=== PATIENT | female | born 1990 | race Caucasian/White ===

== ENCOUNTER → 2023-10-22 06:40 | Outpatient (REF) | payer OTHER, SELFPAY | LOC: RAD 06:40 | PROVIDERS: ATTENDING PHYSICIAN Nurse Practitioner; FAMILY PHYSICIAN Family Medicine | DX: I70.0 Atherosclerosis of aorta (principal) | CPT/HCPCS: 76770 ==

== ENCOUNTER 2023-12-01 10:48 | Emergency (ER) | payer OTHER, SELFPAY ==
[2023-12-01 10:55] VITALS: BP 121/84
[2023-12-01 11:23] LABS: Urine Albumin Negative (Neg - Trace); Urine Bilirubin 1+ (Negative); Urine Character Clear (Clear); Urine Color Yellow; Urine Glucose Negative (Negative); Urine Ketone Trace (Negative); Urine Leukocyte 1+ (Negative); Urine Nitrite Negative (Negative); Urine Occult Blood Negative (Negative); Urine Specific Gravity 1.015 (<1.030); Urine Urobilinogen Negative (Neg - 1+)
[2023-12-01 11:30] LABS: % Basophils 0.4 % (0-2); % Eosinophils 0.6 % (0-6); % Immature Granulocytes 0.3 % (0-0.5); % Lymphocytes 29.2 % (20.5-51.1); % Monocytes 4.6 % (1.7-9.3); % Neutrophils 64.9 % (42.2-75.2); Absolute Basophils 0.1 10^3/uL (0-0.2); Absolute Eosinophils 0.1 10^3/uL (0-0.7); Absolute Lymphocytes 3.6 10^3/uL (1.2-3.4); Absolute Monocytes 0.6 10^3/uL (0.1-0.6); Absolute Neutrophils 8.1 10^3/uL (1.4-6.5); Hematocrit 37.3 % (37.0-47.0); Hemoglobin 12.4 g/dL (12.0-16.0); Mean Corp Hgb Conc. 33.2 g/dL (33.0-37.0); Mean Corpuscular Hgb 27.7 pg (27.0-31.0); Mean Corpuscular Volume 83.3 fL (81.0-99.0); Mean Platelet Volume 10.3 fL (7.4-10.4); Nucleated Red Blood Cells % 0 %; Platelet Count 323 10^3/uL (130-400); Red Blood Cell Count 4.48 10^6/uL (4.20-5.40); Red Cell Dist. Width 13.6 % (11.5-14.5); Urine Red Blood Cell 0-2 /HPF (0-2); Urine Squamous Cell >30 /LPF (Few); White Blood Cell Count 12.5 10^3/uL (4.8-10.8)
[2023-12-01 11:31] LABS: Urine Bacteria Moderate (Negative)
[2023-12-01 11:51] LABS: ALT (SGPT) 18 U/L (0-35); AST (SGOT) 20 U/L (14-36); Albumin 4.4 g/dl (3.5-5.0); Alkaline Phosphatase 81 U/L (38-126); Blood Urea Nitrogen 15 mg/dl (7-17); Carbon Dioxide 21 mmol/L (22-30); Chloride 100 mmol/L (98-107); Glucose 100 mg/dl (70-99); Potassium 4.7 mmol/L (3.5-5.1); Sodium 136 mmol/L (135-145); Total Bilirubin 0.4 mg/dl (0.2-1.3); Total Protein 7.4 g/dl (6.3-8.2); eGFR > 60.00
[2023-12-01 12:00] LABS: Lipase 90 U/L (23-300)
--- NOTE | 2023-12-01 12:33 | ED.GENMED ---
History of Present Illness
<Celeste Banks PA-C - Last Filed: 12/01/23 19:18>
General
Chief Complaint: Abdominal Pain
Source: patient
Exam Limitations: none
Time Seen by Provider: 12/01/23 11:57
Nursing documentation reviewed up to this point in time: agreed with
Travel History
Have you had any contact with someone who has COVID-19?: No
Do you have any symptoms of coronavirus? Fever > 100 degrees, chills, cough, shortness of breath, sore throat, loss of taste or smell, muscle aches, or headache?: No
History of Present Illness
History of Present Illness:
Patient is a 32-year-old female with history of hypertension, hyperlipidemia, GERD, endometriosis presenting to the emergency department for evaluation of lower abdominal pain with associated nausea and vomiting. Patient states symptoms initially
started this past Thursday. Patient's describes abdominal pain as a constant pain in her lower abdomen, slightly worse in the right lower quadrant. Intensity does wax and wane and feels like a cramping sensation. Pain is made worse with movement
and walking. Patient reports intermittent nausea and vomiting and associated anorexia. Possible subjective fever yesterday. Patient denies any chest pain, shortness of breath, constipation, or urinary symptoms.
Of note�patient was treated with Augmentin for his presumed bronchitis. She started antibiotic on Thursday and stopped antibiotic yesterday due to these GI symptoms that she is unsure if they are related to antibiotic.
Patient has a history of cholecystectomy and endometriosis surgery many years ago.
Patient states this pain feels very different than prior ovarian cyst and kidney stones.
Past History
<Celeste Banks PA-C - Last Filed: 12/01/23 19:18>
Past History
ED Past Medical History: GERD, HTN, NIDDM and Other (Polycystic ovarian syndrome, Ovarian cyst, UTI, Kidney stones, IBS, endometriosis, hiatal hernia, esophagitis/gastritis)
ED Past Surgical History: Cholecystectomy (February 2015), Gynecological (Laparoscopy for endometriosis, left ovarian cyst February 2019.) and Tonsilectomy
Social History
Tobacco: Former smoker
Alcohol: None
Drug: None
Personal: Single
Living: with family
Employment: Employed
Family History
Family History: Hypertension
Review of Systems
<Celeste Banks PA-C - Last Filed: 12/01/23 19:18>
Review of Systems
Allergies reviewed?: Yes
All Other Systems: ROS reviewed and negative except as documented in HPI and ROS
Phy Exam
<Celeste Banks PA-C - Last Filed: 12/01/23 19:18>
Physical Exam
Physical Exam:
Vitals: Patient's vital signs are stable
General: Patient is well appearing, no acute distress
Skin: Warm and dry, no rashes or lesions
Head: Normocephalic, atraumatic
Eyes: Sclera nonicteric. EOMs intact. No nystagmus.
Throat: Protecting airway
Neck: Normal ROM, no cervical spine tenderness, no meningismus
Cardiac: Regular rate and rhythm, no murmurs.
Pulm: Normal respiratory effort, no wheezes, rales, rhonchi heard on exam.
Abdomen: Abdomen soft. Diffuse tenderness lower abdomen, worse in right lower quadrant. Some point tenderness in McBurney's point. No rebound tenderness or guarding. No CVA tender
Extremities: No evidence of cyanosis or edema. DP pulses palpable and equal bilaterally
Neuro: AAOx3. CN II-XII intact. No focal neurologic deficits.
Psychiatric: Normal affect.
Course
<Celeste Banks PA-C - Last Filed: 12/01/23 19:18>
Orders/Labs/Results
Orders:
Orders
12/01/23 11:14
Complete Blood Count/With Diff Urgent
Urinalysis Urgent
Date Specimen was Collected: 12/01/23
Time Specimen was Collected: 10:57
Urine Microscopic Urgent
Date Specimen was Collected: 12/01/23
Time Specimen was Collected: 10:57
12/01/23 11:15
Comprehensive Metabolic Panel Urgent
HCG, Serum Qualitative Screen Urgent
Comment: ADD ON
Lipase Urgent
12/01/23 12:30
0.9% Sodium Chloride 1000 ml [Nss] 1,000 ml IV BOLUS
Ketorolac [Toradol] 15 mg IV NOW STA
Ondansetron Injectable [Zofran] 4 mg IV NOW STA
12/01/23 12:32
CT Abd/Pel (IV only)-DH only Urgent
Comment:
Reason For Exam: lower abdominal pain, nausea/vomiting
12/01/23 12:36
Add On- LAB Urgent
Tests Added?: serum qual hcg
Abnormal Lab Results
12/01/23 12/01/23
11:14 11:15
WBC 12.5 H 10^3/uL
(4.8-10.8)
Absolute Neuts (auto) 8.1 H 10^3/uL
(1.4-6.5)
Absolute Lymphs (auto) 3.6 H 10^3/uL
(1.2-3.4)
Carbon Dioxide 21 L mmol/L
(22-30)
Glucose 100 H mg/dl
(70-99)
Urine Ketones Trace A
(Negative)
Urine Bilirubin 1+ A
(Negative)
Ur Leukocyte Esterase 1+ A
(Negative)
Urine WBC 6-10 A /HPF
(0-5)
Urine Bacteria Moderate A
(Negative)
12/01/23 11:14
12/01/23 11:15
Vital Signs
Initial and Last Documented VS:
Initial Vital Signs
Temp Pulse Resp BP Pulse Ox
98.5 F 91 18 121/84 94
12/01/23 10:55 12/01/23 10:55 12/01/23 10:55 12/01/23 10:55 12/01/23 10:55
Last Documented Vital Signs
Temp Pulse Resp BP Pulse Ox
98.5 F 88 20 126/69 98
12/01/23 10:55 12/01/23 15:51 12/01/23 15:51 12/01/23 15:51 12/01/23 15:51
<Abdiel Vaughan MD - Last Filed: 12/01/23 12:50>
Orders/Labs/Results
Orders:
Orders
12/01/23 11:14
Complete Blood Count/With Diff Urgent
Urinalysis Urgent
Date Specimen was Collected: 12/01/23
Time Specimen was Collected: 10:57
Urine Microscopic Urgent
Date Specimen was Collected: 12/01/23
Time Specimen was Collected: 10:57
12/01/23 11:15
Comprehensive Metabolic Panel Urgent
HCG, Serum Qualitative Screen Urgent
Comment: ADD ON
Lipase Urgent
12/01/23 12:30
0.9% Sodium Chloride 1000 ml [Nss] 1,000 ml IV BOLUS
Ketorolac [Toradol] 15 mg IV NOW STA
Ondansetron Injectable [Zofran] 4 mg IV NOW STA
12/01/23 12:32
CT Abd/Pel (IV only)-DH only Urgent
Comment:
Reason For Exam: lower abdominal pain, nausea/vomiting
12/01/23 12:36
Add On- LAB Urgent
Tests Added?: serum qual hcg
Abnormal Lab Results
12/01/23 12/01/23
11:14 11:15
WBC 12.5 H 10^3/uL
(4.8-10.8)
Absolute Neuts (auto) 8.1 H 10^3/uL
(1.4-6.5)
Absolute Lymphs (auto) 3.6 H 10^3/uL
(1.2-3.4)
Carbon Dioxide 21 L mmol/L
(22-30)
Glucose 100 H mg/dl
(70-99)
Urine Ketones Trace A
(Negative)
Urine Bilirubin 1+ A
(Negative)
Ur Leukocyte Esterase 1+ A
(Negative)
Urine WBC 6-10 A /HPF
(0-5)
Urine Bacteria Moderate A
(Negative)
12/01/23 11:14
12/01/23 11:15
Vital Signs
Initial and Last Documented VS:
Initial Vital Signs
Temp Pulse Resp BP Pulse Ox
98.5 F 91 18 121/84 94
12/01/23 10:55 12/01/23 10:55 12/01/23 10:55 12/01/23 10:55 12/01/23 10:55
Last Documented Vital Signs
Temp Pulse Resp BP Pulse Ox
98.5 F 88 20 126/69 98
12/01/23 10:55 12/01/23 15:51 12/01/23 15:51 12/01/23 15:51 12/01/23 15:51
<Celeste Banks PA-C - Last Filed: 12/01/23 19:18>
MDM/Problems Addressed
Differential Diagnosis Includes:
Not limited to: Gastritis, medication reaction, UTI, pyelonephritis, kidney stone, appendicitis, ovarian cyst, doubt ovarian torsion
MDM/Problems Addressed:
Patient is a 32-year-old female presenting with intermittent lower abdominal pain with associated nausea and vomiting for the past 3 days. No fever or urinary symptoms. Very minimal diarrhea over the past 2 days. She did recently take a few days
of Augmentin for presumed bronchitis but stopped due to worry that the symptoms are caused by medication. Vitals are stable, she is afebrile. Exam as above. Patient is nontoxic-appearing. Abdomen is soft, although tender in lower abdomen most
significant in right lower quadrant. No rebound tenderness or guarding. No CVA tenderness. Labs obtained in triage show mild leukocytosis of 12.5. Otherwise no clinically significant abnormalities. Urine does show some WBCs and moderate
bacteria, although there are many squamous cells noted suggesting likely contamination. Patient without urinary symptoms at this time�do not suspect UTI as cause for symptoms. Given tenderness in right lower quadrant and associated nausea and loss
of appetite�will check CT abdomen/pelvis to ensure no appendicitis. Very low suspicion for C. difficile or infectious diarrhea although will collect stool culture if able to provide a sample in ER today. Do not suspect antibiotics as cause for
symptoms Toradol, Zofran, IV fluids. Will closely monitor and reassess.
Into reassess patient at bedside. She does report improvement in pain following Toradol. CT abdomen/pelvis shows no acute inflammatory process. Appendix is visualized and noted to be normal.
Work appears been negative. Patient remained stable in no significant distress. Unsure exact etiology of patient's abdominal pain�possibility of viral etiology with recent URI. Stable for discharge with GI follow-up. Will send Zofran to pharmacy.
Return precautions discussed with patient at length.
Chronic conditions affecting care:
GERD, hypertension, endometriosis
Acute Exacerbation and/or Progression of Chronic Illness:
N/A
<Celeste Banks PA-C - Last Filed: 12/01/23 19:18>
*Radiology
Radiology exam reviewed: preliminary read by ED provider and radiology read reviewed
*Pulse Oximetry
Patient hypoxic: no
*EKG
Interpreted by ED Provider?: NA
*Credentials Specialist Interpretation
Rate: Credentials Specialist- N/A
*Critical Care Note
Total Time (30-74mins, 75-104mins- exclusive of procedures): Not Applicable
ED Attending Note
<Celeste Banks PA-C - Last Filed: 12/01/23 19:18>
-
Portions of this chart may have been created with voice recognition software.� Occasional wrong word or��sound alike� substitutions may have occurred due to the inherent limitations of voice recognition software.
<Abdiel Vaughan MD - Last Filed: 12/01/23 12:50>
ED Attending Note
Patient seen and examined by attending physician: Yes
I performed the substantive portion of visit, reviewed & personally made and approve the management plan that is documented in note by myself or MISAEL.: Yes
ED Attending Note:
32-year-old female complaining of vague lower abdominal pain. Progressive over days. Some nausea vomiting mild diarrhea. Has been on Augmentin for upper respiratory symptoms. Upper respiratory symptoms are improving. No dysuria or frequency.
Menses are normal. Denies . History of cholecystectomy.
On exam patient is nontoxic in no distress. Lungs are clear and equal. Heart regular rate and rhythm. Abdomen positive bowel sounds. Tenderness lower abdomen but greatest in the right lower quadrant. Mild to moderate nature. No rebound or
guarding no mass or hernia. No deep pelvic tenderness.
Differential would include colitis, C. difficile she has been on Bactrim followed by Augmentin. Appendicitis. Doubt TAPPER BIT issue. Workup in progress.
Discharge Plan
Departure
Patient Disposition: Home (Routine Discharge)
Date of Disposition: 12/01/23
Time of Disposition: 17:04
Patient with high blood pressure during this ER visit?: No
Condition: Good
Covid-19: Not Applicable
Discharge Problem:
Abdominal pain, Nausea & vomiting
Instructions: Abdominal Pain, Adult ED
Prescriptions:
New
ondansetron 4 mg tablet,disintegrating
4 mg PO Q8H PRN (Reason: nausea and vomiting) Qty: 10 0RF
No Action
lisinopril 20 MG tablet
20 mg PO QPM
amlodipine 5 MG tablet
5 mg PO QPM
metformin 500 MG tablet extended release 24 hr
1,000 mg PO DAILY
tramadol 50 MG tablet
50 mg PO Q6HPRN PRN (Reason: severe pain) Qty: 6 0RF
oxycodone-acetaminophen 5 MG/325 MG tablet
1 tab PO Q4HPRN PRN (Reason: pain) Qty: 17 0RF
fexofenadine [Karely] 180 MG tablet
180 mg PO DAILY
triamterene-hydrochlorothiazid 1 EACH tablet
1 tab PO DAILY
omeprazole 20 MG capsule,delayed release(DR/EC)
20 mg PO DAILY
magnesium citrate 125 MG capsule
250 mg PO BID
Cranberry
1 cap PO DAILY
Kelnor 1-35 28 Tablet
1 tab PO DIRECTED
Vitamin D3
1 cap PO DAILY
labetalol 100 MG tablet
300 mg PO BID
Referrals:
Kevyn Ortiz MD [Family Provider] - Follow up in 2-3 days
Dot Jones MD [Active] - Next open appointment
Activity Restrictions/Additional Instructions:
-RETURN TO THE EMERGENCY DEPARTMENT WITH ANY FEVERS, CHILLS, WORSENING/PERSISTENT ABDOMINAL PAIN, LOSS OF APPETITE, INTRACTABLE NAUSEA/VOMITING, WORSENING IN CURRENT SYMPTOMS, OR ANY OTHER CONCERNS
-You can take motrin as needed for discomfort. A prescription for zofran has been sent to your pharmacy. You can take this every 8 hours as needed for severe/persistent nausea. It is important to stay well hydrated.
-As discussed - you should follow-up with your PCP, mission analyst and OBGYN for further evaluation/management.
Interventions
Interventions:
*Risk Screen - Suicide Last Done: 12/01/23 17:25
*General Assessment Last Done: 12/01/23 13:14
*Neglect/Abuse Screening Last Done: 12/01/23 17:25
*Nursing Disposition Last Done: 12/01/23 17:25
[facility]ozx[facility]-Gcxuvsnbgk Assessment Last Done: 12/01/23 13:14
Discharge Date and Time
Discharge Date/Time: 12/01/23 17:41
Print Language: KOREAN
[2023-12-01] MEDS: TORADOL 15 MG IV (13:08)
[2023-12-01] MEDS: NSS 1000 IV (13:08)
[2023-12-01] MEDS: ZOFRAN 4 MG IV (13:08)
[2023-12-01 14:18] LABS: HCG, Serum Qualitative Screen Negative
[2023-12-01 15:51] VITALS: BP 126/69
[2023-12-01 15:51] LABS: Glucose - Point of Care 84 mg/dl (70-99)
== END 2023-12-01 17:41 | disposition home or self-care (01) ==
LOC: EMR 10:48
PROVIDERS: Emergency Medicine; EMERGENCY PHYSICIAN Emergency Medicine; FAMILY PHYSICIAN Family Medicine
DX: R10.30 Lower abdominal pain, unspecified (principal); R11.2 Nausea with vomiting, unspecified; R19.7 Diarrhea, unspecified; R42 Dizziness and giddiness; I10 Essential (primary) hypertension; E78.5 Hyperlipidemia, unspecified; K21.00 Gastro-esophageal reflux disease with esophagitis, without bleeding; E11.9 Type 2 diabetes mellitus without complications; E28.2 Polycystic ovarian syndrome; K58.0 Irritable bowel syndrome with diarrhea; G47.30 Sleep apnea, unspecified; F43.10 Post-traumatic stress disorder, unspecified; Z87.442 Personal history of urinary calculi; Z87.440 Personal history of urinary (tract) infections; Z87.891 Personal history of nicotine dependence; Z90.49 Acquired absence of other specified parts of digestive tract; Z88.8 Allergy status to other drugs, medicaments and biological substances; Z79.84 Long term (current) use of oral hypoglycemic drugs
CPT/HCPCS: 99285; 96375; 96361; 96374; 74177; 80053; 81003; 81015; 82962; 83690; 84703; 85025; Q9967

== ENCOUNTER 2024-01-27 12:55 | Emergency (ER) | payer OTHER, SELFPAY ==
[2024-01-27 13:10] VITALS: BP 145/103
[2024-01-27 13:44] LABS: % Basophils 0.2 % (0-2); % Eosinophils 0.2 % (0-6); % Immature Granulocytes 0.5 % (0-0.5); % Lymphocytes 19.7 % (20.5-51.1); % Monocytes 5.5 % (1.7-9.3); % Neutrophils 73.9 % (42.2-75.2); Absolute Immature Granulocytes 0.1 10^3/uL (0-0.05); Absolute Lymphocytes 3.4 10^3/uL (1.2-3.4); Absolute Neutrophils 12.9 10^3/uL (1.4-6.5); Hematocrit 39.6 % (37.0-47.0); Hemoglobin 13.6 g/dL (12.0-16.0); Mean Corp Hgb Conc. 34.3 g/dL (33.0-37.0); Mean Corpuscular Hgb 28.8 pg (27.0-31.0); Mean Corpuscular Volume 83.9 fL (81.0-99.0); Mean Platelet Volume 10.4 fL (7.4-10.4); Nucleated Red Blood Cells % 0 %; Platelet Count 393 10^3/uL (130-400); Red Blood Cell Count 4.72 10^6/uL (4.20-5.40); Red Cell Dist. Width 13.4 % (11.5-14.5); White Blood Cell Count 17.4 10^3/uL (4.8-10.8)
--- NOTE | 2024-01-27 13:46 | ED.GENMED ---
History of Present Illness
General
Chief Complaint: Abdominal Symptoms
Time Seen by Provider: 01/27/24 13:46
Past History
Past History
ED Past Medical History: GERD, HTN, NIDDM and Other (Polycystic ovarian syndrome, Ovarian cyst, UTI, Kidney stones, IBS, endometriosis, hiatal hernia, esophagitis/gastritis)
ED Past Surgical History: Cholecystectomy (February 2015), Gynecological (Laparoscopy for endometriosis, left ovarian cyst February 2019.) and Tonsilectomy
Social History
Tobacco: Former smoker
Alcohol: None
Drug: None
Personal: Single
Living: with family
Employment: Employed
Family History
Family History: Hypertension
Course
Orders/Labs/Results
Orders:
Orders
01/27/24 13:20
Complete Blood Count/With Diff Urgent
Comprehensive Metabolic Panel Urgent
Lipase Urgent
Abnormal Lab Results
01/27/24
13:20
WBC 17.4 H 10^3/uL
(4.8-10.8)
Abs Immat Gran (auto) 0.1 H 10^3/uL
(0-0.05)
Absolute Neuts (auto) 12.9 H 10^3/uL
(1.4-6.5)
Absolute Monos (auto) 1.0 H 10^3/uL
(0.1-0.6)
Lymphocytes % 19.7 L %
(20.5-51.1)
01/27/24 13:20
Vital Signs
Initial and Last Documented VS:
Initial Vital Signs
Temp Pulse Resp BP Pulse Ox
98.3 F 115 20 145/103 99
01/27/24 13:10 01/27/24 13:10 01/27/24 13:10 01/27/24 13:10 01/27/24 13:10
Last Documented Vital Signs
Temp Pulse Resp BP Pulse Ox
98.3 F 115 20 145/103 99
01/27/24 13:10 01/27/24 13:10 01/27/24 13:10 01/27/24 13:10 01/27/24 13:10
ED Attending Note
-
Portions of this chart may have been created with voice recognition software.� Occasional wrong word or��sound alike� substitutions may have occurred due to the inherent limitations of voice recognition software.
Discharge Plan
Departure
Prescriptions:
No Action
lisinopril 20 MG tablet
20 mg PO QPM
amlodipine 5 MG tablet
5 mg PO QPM
metformin 500 MG tablet extended release 24 hr
1,000 mg PO DAILY
tramadol 50 MG tablet
50 mg PO Q6HPRN PRN (Reason: severe pain) Qty: 6 0RF
oxycodone-acetaminophen 5 MG/325 MG tablet
1 tab PO Q4HPRN PRN (Reason: pain) Qty: 17 0RF
fexofenadine [Karely] 180 MG tablet
180 mg PO DAILY
triamterene-hydrochlorothiazid 1 EACH tablet
1 tab PO DAILY
omeprazole 20 MG capsule,delayed release(DR/EC)
20 mg PO DAILY
magnesium citrate 125 MG capsule
250 mg PO BID
Cranberry
1 cap PO DAILY
Kelnor 1-35 28 Tablet
1 tab PO DIRECTED
Vitamin D3
1 cap PO DAILY
labetalol 100 MG tablet
300 mg PO BID
ondansetron 4 mg tablet,disintegrating
4 mg PO Q8H PRN (Reason: nausea and vomiting) Qty: 10 0RF
Discharge Date and Time
Print Language: MONGOLIAN
[2024-01-27 13:53] LABS: ALT (SGPT) 20 U/L (0-35); AST (SGOT) 23 U/L (14-36); Albumin 4.6 g/dl (3.5-5.0); Alkaline Phosphatase 82 U/L (38-126); Blood Urea Nitrogen 14 mg/dl (7-17); Calcium 10.5 mg/dl (8.4-10.2); Carbon Dioxide 22 mmol/L (22-30); Chloride 104 mmol/L (98-107); Glucose 100 mg/dl (70-99); Lipase 110 U/L (23-300); Potassium 5.1 mmol/L (3.5-5.1); Sodium 135 mmol/L (135-145); Total Bilirubin 0.4 mg/dl (0.2-1.3); Total Protein 7.4 g/dl (6.3-8.2); eGFR > 60.00
--- NOTE | 2024-01-27 14:35 | ED.GENMED ---
History of Present Illness
<Ariadna Goetz PA-C - Last Filed: 01/27/24 18:01>
General
Chief Complaint: Abdominal Symptoms
Source: patient
Exam Limitations: none
Time Seen by Provider: 01/27/24 13:46
Nursing documentation reviewed up to this point in time: agreed with
History of Present Illness
History of Present Illness:
33-year-old female past medical history of endometriosis, GERD, IBS, PCOS presenting emergency department today with concerns of sudden onset abdominal pain. Patient states when she woke up this morning, she started to have severe periumbilical
abdominal pain. The pain is worse with any movement especially walking. Patient states that this pain is different from her pain associated with her endometriosis. This is associated with nausea and vomiting. She had 2 episodes of vomiting today.
Patient states that she feels like subjective fevers developing while she has been here in the emergency department. Patient states the past few days she has been feeling well and her symptoms are all of a sudden. Patient does note that she ate
food at [employer] today and is concerned she might have food poisoning. Patient denies any recent travel outside the country. Patient was also started on Mounjaro 4 days ago by her patient account specialist and is concerned that she might have
gastroparesis. Patient tried taking Zofran this morning but immediately vomited after swallowing the tablet.
Past History
<Ariadna Goetz PA-C - Last Filed: 01/27/24 18:01>
Past History
ED Past Medical History: GERD, HTN, NIDDM and Other (Polycystic ovarian syndrome, Ovarian cyst, UTI, Kidney stones, IBS, endometriosis, hiatal hernia, esophagitis/gastritis)
ED Past Surgical History: Cholecystectomy (February 2015), Gynecological (Laparoscopy for endometriosis, left ovarian cyst February 2019.) and Tonsilectomy
Social History
Tobacco: Former smoker
Alcohol: None
Drug: None
Personal: Single
Living: with family
Employment: Employed
Family History
Family History: Hypertension
Review of Systems
<Ariadna Goetz PA-C - Last Filed: 01/27/24 18:01>
Review of Systems
All Other Systems: ROS reviewed and negative except as documented in HPI and ROS
Phy Exam
<Ariadna Goetz PA-C - Last Filed: 01/27/24 18:01>
Physical Exam
Physical Exam:
General: Patient is well appearing and in no acute distress; non-toxic
Skin: Warm and dry, no rashes or lesions
Head: Normocephalic, atraumatic
Eyes: Sclera non-icteric. EOMs intact.
Cardiac: Patient is tachycardic otherwise regular rate and rhythm, no murmurs
Peripheral Vascular: No lower extremity swelling or edema
Pulm: Normal respiratory effort
Abdomen: Moderate periumbilical abdominal tenderness to palpation with diffuse guarding. No palpable masses, no rebound tenderness.
Neuro: CN II-XII intact, no focal neurologic deficits.
Psychiatric: Appropriate mood and affect.
Course
<Ariadna Goetz PA-C - Last Filed: 01/27/24 18:01>
Orders/Labs/Results
Orders:
Orders
01/27/24 13:20
Complete Blood Count/With Diff Urgent
Comprehensive Metabolic Panel Urgent
HCG, Serum Qualitative Screen Urgent
Comment: ADD ON
Lipase Urgent
01/27/24 14:37
Add On- LAB Urgent
Tests Added?: serum hcg
01/27/24 14:47
0.9% Sodium Chloride 1000 ml [Nss] 1,000 ml IV BOLUS
Ketorolac [Toradol] 15 mg IV NOW STA
Ondansetron Injectable [Zofran] 4 mg IV NOW STA
01/27/24 14:48
CT Abd/pelvis W Iv Cont Urgent
Comment:
Reason For Exam: periumbilical pain
01/27/24 15:24
Morphine Sulfate 4 mg IV NOW STA
Abnormal Lab Results
01/27/24
13:20
WBC 17.4 H 10^3/uL
(4.8-10.8)
Abs Immat Gran (auto) 0.1 H 10^3/uL
(0-0.05)
Absolute Neuts (auto) 12.9 H 10^3/uL
(1.4-6.5)
Absolute Monos (auto) 1.0 H 10^3/uL
(0.1-0.6)
Lymphocytes % 19.7 L %
(20.5-51.1)
Glucose 100 H mg/dl
(70-99)
Calcium 10.5 H mg/dl
(8.4-10.2)
01/27/24 13:20
01/27/24 13:20
Vital Signs
Initial and Last Documented VS:
Initial Vital Signs
Temp Pulse Resp BP Pulse Ox
98.3 F 115 20 145/103 99
01/27/24 13:10 01/27/24 13:10 01/27/24 13:10 01/27/24 13:10 01/27/24 13:10
Last Documented Vital Signs
Temp Pulse Resp BP Pulse Ox
98.3 F 91 18 123/72 98
01/27/24 13:10 01/27/24 17:31 01/27/24 17:31 01/27/24 17:31 01/27/24 17:31
<Nahid Aquino, DO - Last Filed: 01/27/24 15:25>
Orders/Labs/Results
Orders:
Orders
01/27/24 13:20
Complete Blood Count/With Diff Urgent
Comprehensive Metabolic Panel Urgent
HCG, Serum Qualitative Screen Urgent
Comment: ADD ON
Lipase Urgent
01/27/24 14:37
Add On- LAB Urgent
Tests Added?: serum hcg
01/27/24 14:47
0.9% Sodium Chloride 1000 ml [Nss] 1,000 ml IV BOLUS
Ketorolac [Toradol] 15 mg IV NOW STA
Ondansetron Injectable [Zofran] 4 mg IV NOW STA
01/27/24 14:48
CT Abd/pelvis W Iv Cont Urgent
Comment:
Reason For Exam: periumbilical pain
01/27/24 15:24
Morphine Sulfate 4 mg IV NOW STA
Abnormal Lab Results
01/27/24
13:20
WBC 17.4 H 10^3/uL
(4.8-10.8)
Abs Immat Gran (auto) 0.1 H 10^3/uL
(0-0.05)
Absolute Neuts (auto) 12.9 H 10^3/uL
(1.4-6.5)
Absolute Monos (auto) 1.0 H 10^3/uL
(0.1-0.6)
Lymphocytes % 19.7 L %
(20.5-51.1)
Glucose 100 H mg/dl
(70-99)
Calcium 10.5 H mg/dl
(8.4-10.2)
01/27/24 13:20
01/27/24 13:20
Vital Signs
Initial and Last Documented VS:
Initial Vital Signs
Temp Pulse Resp BP Pulse Ox
98.3 F 115 20 145/103 99
01/27/24 13:10 01/27/24 13:10 01/27/24 13:10 01/27/24 13:10 01/27/24 13:10
Last Documented Vital Signs
Temp Pulse Resp BP Pulse Ox
98.3 F 91 18 123/72 98
01/27/24 13:10 01/27/24 17:31 01/27/24 17:31 01/27/24 17:31 01/27/24 17:31
<Ariadna Goetz PA-C - Last Filed: 01/27/24 18:01>
MDM/Problems Addressed
Differential Diagnosis Includes:
ddx include acute appendicitis, diverticulitis, gastroenteritis, gastroparesis, endometriosis
MDM/Problems Addressed:
Abdominal pain:
33-year-old female past medical history of endometriosis, GERD, IBS, PCOS presenting emergency department today with concerns of sudden onset abdominal pain. Patient states when she woke up this morning, she started to have severe periumbilical
abdominal pain. The pain is worse with any movement especially walking. Patient states that this pain is different from her pain associated with her endometriosis. This is associated with nausea and vomiting. She had 2 episodes of vomiting today.
On exam, she appears to be well-appearing does appear uncomfortable secondary to pain. She does have tenderness on exam. Is dry heaving. She is also tachycardic upon presentation. Her white blood cell count is elevated at 17, her CMP is
unremarkable. Did obtain CAT scan which was negative for any surgical process but did show some enteritis. Discussed these findings with patient. Doubt symptoms related to her Mounjaro but advised patient to follow-up with her patient account specialist
regarding this. Patient stable for discharge.
Chronic conditions affecting care:
HTN, GERDS, endometriosis, IBS, PCOS
<Ariadna Goetz PA-C - Last Filed: 01/27/24 18:01>
*Pulse Oximetry
Patient hypoxic: no
*Critical Care Note
Total Time (30-74mins, 75-104mins- exclusive of procedures): Not Applicable
Data Reviewed
Review of Other/Old Records Reveals: Records (Reviewed ER physician recommendation they were patient was seen for similar symptoms )
Source: patient and records
<Ariadna Goetz PA-C - Last Filed: 01/27/24 18:01>
Update Note
Update Note:
4:53 pm-- Patient does not feel nauseous, she does feel like her pain is starting to come back
ED Attending Note
<Ariadna Goetz PA-C - Last Filed: 01/27/24 18:01>
-
Portions of this chart may have been created with voice recognition software.� Occasional wrong word or��sound alike� substitutions may have occurred due to the inherent limitations of voice recognition software.
<Nahid Aquino DO - Last Filed: 01/27/24 15:25>
ED Attending Note
Patient seen and examined by attending physician: Yes
I performed the substantive portion of visit, reviewed & personally made and approve the management plan that is documented in note by myself or MISAEL.: Yes
ED Attending Note:
I have seen and evaluated the patient with a [id number] encounter. I have spoken to the advance practicer provider and involved in the medical history, the physical exam, medical decision making.
Evaluation and management service: agree unless noted differently below.
Results interpretation: agree unless noted differently below.
Focused HPI: 33-year-old female presenting for evaluation of periumbilical pain. Patient states she has been feeling nauseous and throwing up. She tried dicyclomine without relief. Patient is concerned it could be a kidney stone or possibly
related to side effect of recently added Mounjaro
Physical exam: Sitting bed comfortably. Mild tenderness in the periumbilical region. No rebound. Mildly dry mucous membranes
Medical Decision Making: Given pain distribution, will obtain CT
Discharge Plan
Departure
Patient Disposition: Home (Routine Discharge)
Date of Disposition: 01/27/24
Time of Disposition: 17:17
Patient with high blood pressure during this ER visit?: Yes
Condition: Good
Discharge Problem:
Enteritis, Nausea & vomiting
Instructions: Viral gastroenteritis in adults, Nausea and Vomiting, Adult (DC)
Prescriptions:
New
ondansetron 4 mg tablet,disintegrating
4 mg PO Q8H PRN (Reason: nausea and vomiting) Qty: 10 0RF
No Action
lisinopril 20 MG tablet
20 mg PO QPM
amlodipine 5 MG tablet
5 mg PO QPM
metformin 500 MG tablet extended release 24 hr
1,000 mg PO DAILY
tramadol 50 MG tablet
50 mg PO Q6HPRN PRN (Reason: severe pain) Qty: 6 0RF
oxycodone-acetaminophen 5 MG/325 MG tablet
1 tab PO Q4HPRN PRN (Reason: pain) Qty: 17 0RF
fexofenadine [Karely] 180 MG tablet
180 mg PO DAILY
triamterene-hydrochlorothiazid 1 EACH tablet
1 tab PO DAILY
omeprazole 20 MG capsule,delayed release(DR/EC)
20 mg PO DAILY
magnesium citrate 125 MG capsule
250 mg PO BID
Cranberry
1 cap PO DAILY
Kelnor 1-35 28 Tablet
1 tab PO DIRECTED
Vitamin D3
1 cap PO DAILY
labetalol 100 MG tablet
300 mg PO BID
ondansetron 4 mg tablet,disintegrating
4 mg PO Q8H PRN (Reason: nausea and vomiting) Qty: 10 0RF
Referrals:
Kevyn Ortiz MD [Family Provider] -
Stand Alone Forms: Return to Work
Activity Restrictions/Additional Instructions:
Please stay well-hydrated.
Please return to the emergency department should you experience intractable vomiting, intractable belly pain, fevers or chills, chest pain, shortness of breath, dizziness, lightheadedness, fainting spells, or any other signs or symptoms concerning
to you.
Please call your patient account specialist in a week to let them know of your symptoms.
Interventions
Interventions:
*Risk Screen - Suicide Last Done: 01/27/24 14:37
*General Assessment Last Done: 01/27/24 14:37
*Neglect/Abuse Screening Last Done: 01/27/24 14:37
*Nursing Disposition Last Done: 01/27/24 17:35
HG-Ldxhwe-Dnybrzvkwo Assessment Last Done: 01/27/24 14:37
Discharge Date and Time
Print Language: CITIZEN OF [place]
[2024-01-27] MEDS: NSS 1000 IV (15:00)
[2024-01-27] MEDS: ZOFRAN 4 MG IV (15:00)
[2024-01-27] MEDS: TORADOL 15 MG IV (15:00)
[2024-01-27 15:09] LABS: HCG, Serum Qualitative Screen Negative
[2024-01-27] MEDS: MORPHINE SULFATE 4 MG IV (15:36)
[2024-01-27 15:58] VITALS: BP 124/70
[2024-01-27 17:31] VITALS: BP 123/72
== END 2024-01-27 18:40 | disposition home or self-care (01) ==
LOC: EMR 12:55
PROVIDERS: Emergency Medicine; EMERGENCY PHYSICIAN Student in an Organized Health Care Education/Training Program; FAMILY PHYSICIAN Family Medicine
DX: K52.9 Noninfective gastroenteritis and colitis, unspecified (principal); K21.9 Gastro-esophageal reflux disease without esophagitis; E28.2 Polycystic ovarian syndrome; E11.9 Type 2 diabetes mellitus without complications; I10 Essential (primary) hypertension; K21.00 Gastro-esophageal reflux disease with esophagitis, without bleeding; Z82.49 Family history of ischemic heart disease and other diseases of the circulatory system; Z87.19 Personal history of other diseases of the digestive system; Z87.440 Personal history of urinary (tract) infections; Z87.891 Personal history of nicotine dependence; Z87.442 Personal history of urinary calculi; Z90.49 Acquired absence of other specified parts of digestive tract
CPT/HCPCS: 99284; 96374; 96375; 96361; 74177; 80053; 83690; 84703; 85025; Q9967

== ENCOUNTER 2024-02-11 21:00 | Emergency (ER) | payer OTHER, SELFPAY ==
[2024-02-11 21:02] VITALS: BP 123/91
[2024-02-11 21:22] LABS: Urine Albumin Negative (Neg - Trace); Urine Bilirubin Negative (Negative); Urine Character Clear (Clear); Urine Color Yellow; Urine Glucose Negative (Negative); Urine Ketone Negative (Negative); Urine Leukocyte Negative (Negative); Urine Nitrite Negative (Negative); Urine Occult Blood Negative (Negative); Urine Urobilinogen Negative (Neg - 1+); Urine pH 6.5 (5.0-9.0)
[2024-02-11 21:24] VITALS: BP 135/81
--- NOTE | 2024-02-11 21:24 | ED.GENMED ---
History of Present Illness
General
Chief Complaint: Abdominal Pain
Source: patient
Exam Limitations: none
Time Seen by Provider: 02/11/24 21:09
Nursing documentation reviewed up to this point in time: agreed with
History of Present Illness
History of Present Illness:
33-year-old female with a past medical history of obesity, hypertension, irritable bowel syndrome, endometriosis, PCOS, diabetes who presents to the emergency department for evaluation of abdominal pain. Patient was notably seen in this emergency
room for abdominal pain 01/27/2024�had CT scan at that time which showed possible enteritis. She says that since then she has had continued abdominal pain; she describes burning sensation in the epigastric region that radiates up her chest. She
says that she was seen by GI doctor (Dr. Rosado) Within the past week and has been taking high-dose PPI and Carafate since but she says that this has not helped and in fact in the past 48 hours she feels her symptoms are worsening. In addition to
burning epigastric pain she also reports nausea and if episodes of vomiting. She denies any diarrhea in fact has been mildly constipated. She denies any dysuria hematuria, change in urinary frequency. She denies any vaginal bleeding or discharge.
No fever or chills. No other complaints noted. Of note, patient had been on Mounjaro since March 2023 but this was discontinued 2 weeks ago she says.
Past History
Past History
ED Past Medical History: GERD, HTN, NIDDM and Other (Polycystic ovarian syndrome, Ovarian cyst, UTI, Kidney stones, IBS, endometriosis, hiatal hernia, esophagitis/gastritis)
ED Past Surgical History: Cholecystectomy (February 2015), Gynecological (Laparoscopy for endometriosis, left ovarian cyst February 2019.) and Tonsilectomy
Social History
Tobacco: Former smoker
Alcohol: None
Drug: None
Personal: Single
Living: with family
Employment: Employed
Family History
Family History: Hypertension
Review of Systems
Review of Systems
All Other Systems: ROS reviewed and negative except as documented in HPI and ROS
Constitutional: Denies fever or chills
Respiratory: Denies cough or trouble breathing
Cardiac: Denies chest pain
ABD/GI: Reports abdominal pain, nausea, vomiting and constipated; Denies diarrhea
: Denies dysuria, frequency, flank pain or bleeding
Musculoskeletal: Denies neck pain or back pain
Neurological: Denies dizzy or headache
Phy Exam
Physical Exam
Physical Exam:
General: Awake, alert, oriented x3; no acute distress
Head: Normocephalic, atraumatic
Eyes: Conjunctiva normal, sclera anicteric
Throat: Airway intact, handling secretions
Neck: Trachea midline, supple without meningismus
Lungs: Clear to auscultation bilaterally, no wheezing, rales, rhonchi
Heart: Regular rate and rhythm, no murmurs, gallops, or rubs
Abd: Soft, non distended, mildly tender epigastric region
Back: No CVA tenderness
Neuro: No gross deficits
Skin: no rash
Extremities: Warm well-perfused with no edema
Scores
Heart Failure Risk
Heart Failure Risk Score: Not Applicable
Heart Score for Chest Pain Patients
STEMI patient?: Not applicable
Withdrawal Assessment of Alcohol
Withdrawal Assessment Completed?: Not applicable
Course
Orders/Labs/Results
Orders:
Orders
02/11/24 21:05
IV Insert/Care/Rem.- Treatment PRN
Test Result ONCE
02/11/24 21:09
Urinalysis Reflex To Culture Urgent
Date Specimen was Collected: 02/11/24
Time Specimen was Collected: 21:05
02/11/24 21:22
Complete Blood Count/With Diff Urgent
Comprehensive Metabolic Panel Urgent
HCG, Serum Qualitative Screen Urgent
Comment: Notify provider if positive test present
Lipase Urgent
02/11/24 21:23
0.9% Sodium Chloride 500 ml [Nss] 500 ml IV BOLUS
Diphenhydramine [Benadryl] 50 mg IV NOW STA
Mag Hydrox/Al Hydrox/Simeth [Maalox] 30 ml Phenobarb/Hyoscy/Atropine/Scop [] 10 ml Viscous Lidocaine 2% [Xylocaine Viscous Cup] 10 ml PO NOW
Metoclopramide [Reglan] 10 mg IV NOW STA
02/11/24 21:26
Phenobarb/Hyoscy/Atropine/Scop [] 10 ml .ROUTE .STK-MED ONE
02/11/24 21:27
Mag Hydrox/Al Hydrox/Simeth [Maalox] 30 ml .ROUTE .STK-MED ONE
Viscous Lidocaine 2% [Xylocaine Viscous Cup] 15 ml .ROUTE .STK-MED ONE
02/11/24 22:01
HYDROmorphone [Dilaudid] 0.5 mg IV NOW STA
02/11/24 22:54
Famotidine [Pepcid] 20 mg IV NOW STA
Pantoprazole [Protonix IV] 40 mg IV NOW STA
Abnormal Lab Results
02/11/24
21:22
WBC 13.7 H 10^3/uL
(4.8-10.8)
RBC 3.99 L 10^6/uL
(4.20-5.40)
Hgb 11.3 L g/dL
(12.0-16.0)
Hct 32.6 L %
(37.0-47.0)
Absolute Neuts (auto) 8.2 H 10^3/uL
(1.4-6.5)
Absolute Lymphs (auto) 4.5 H 10^3/uL
(1.2-3.4)
Absolute Monos (auto) 0.8 H 10^3/uL
(0.1-0.6)
Sodium 134 L mmol/L
(135-145)
Glucose 118 H mg/dl
(70-99)
02/11/24 21:22
02/11/24 21:22
Vital Signs
Initial and Last Documented VS:
Initial Vital Signs
Temp Pulse Resp BP Pulse Ox
37.4 C 89 19 123/91 99
02/11/24 21:02 02/11/24 21:02 02/11/24 21:02 02/11/24 21:02 02/11/24 21:02
Last Documented Vital Signs
Temp Pulse Resp BP Pulse Ox
37.4 C 89 19 154/103 97
02/11/24 21:02 02/11/24 21:02 02/11/24 21:02 02/11/24 22:00 02/11/24 22:30
MDM/Problems Addressed
Differential Diagnosis Includes:
GERD/PUD, esophagitis, gastroparesis
MDM/Problems Addressed:
33-year-old female presents to the emergency room for evaluation of epigastric abdominal pain associated with nausea and vomiting. Ongoing symptoms for weeks, seen by GI started on PPI twice daily and Carafate but symptoms worsening over the past
[address] hours[address] She had a CT scan of the end of January that showed enteritis no acute pathology. She is scheduled for endoscopy in March. Vital signs and exam as above. Plan the patient IV check labs including a CBC and a CMP, lipase. Will check
urinalysis and hCG. She has had two CT abdomen and pelvis studies in the past few months including 1 study less than 3 weeks ago for identical symptoms. In my judgment very low suspicion for an acute surgical emergency; my suspicion is that the
symptoms are related to gastritis or gastroenteritis versus esophagitis or perhaps even peptic ulcer�will forego additional CT scan. Will plan to treat symptomatically that she is on PPI and Carafate; will trial some Reglan and green grabber to
start. Escalate as needed. Reassess after the above.
Labs reviewed�CBC shows slight leukocytosis which has been chronically elevated. Marginal anemia. CMP no clinically significant abnormalities. Lipase normal. hCG negative. UA negative. Clinical reassessment patient reports symptoms unchanged
after treatment with above. Trial low-dose opiate.
Clinical reassessment patient reports symptoms completely resolved after single dose of Dilaudid here. Vital signs have been persistently normal. My impression is that she has significant gastritis or possible PUD. Case discussed with
gastroenterology for recommendations�no clear indication for admission to the hospital vizcarra with symptoms resolved with treatment here, but she is very concerned about discharge home as she is not scheduled for follow-up until mid March and meds
as prescribed by GI have not been controlling symptoms.
Case discussed with gastroenterology�they will expedite outpatient workup including endoscopy. Recommended adding famotidine nightly. Will also switch patient to pantoprazole 40 mg twice daily (currently taking OTC Prilosec). Patient can continue
Carafate. Advised patient to be meticulous about bland diet. Will trial these changes as an outpatient, advised patient that if symptoms are worsening or if these interventions are not resulting in some improvement she should return to the
emergency room. All questions answered.
Chronic conditions affecting care:
Obesity, GERD, irritable bowel syndrome
*Radiology
Radiology exam reviewed: radiology read reviewed (Reviewed CT from 01/27/2024)
*Pulse Oximetry
Patient hypoxic: no
*Critical Care Note
Total Time (30-74mins, 75-104mins- exclusive of procedures): Not Applicable
Data Reviewed
Review of Other/Old Records Reveals: Labs, Records and Radiology Studies
Source: patient and records
Further Testing Considered But Not Given:
Considered repeating CT abdomen pelvis
Patient Management
Discussion with other providers: Sediment Remediation Consultant (Discussed with gastroenterology)
ED Attending Note
-
Portions of this chart may have been created with voice recognition software.� Occasional wrong word or��sound alike� substitutions may have occurred due to the inherent limitations of voice recognition software.
Discharge Plan
Departure
Patient Disposition: Home (Routine Discharge)
Date of Disposition: 02/11/24
Time of Disposition: 23:13
Patient with high blood pressure during this ER visit?: Yes
Discharge Problem:
Abdominal pain
Instructions: Acid Reflux and GERD in Adults (DC), [place] Diet, Abdominal Pain
Prescriptions:
New
famotidine [Pepcid] 40 mg tablet
40 mg PO HS Qty: 30 0RF
pantoprazole 40 mg tablet,delayed release (DR/EC)
40 mg PO BID Qty: 60 0RF
Discontinued
omeprazole 20 MG capsule,delayed release(DR/EC)
20 mg PO DAILY
No Action
lisinopril 20 MG tablet
20 mg PO QPM
amlodipine 5 MG tablet
5 mg PO QPM
metformin 500 MG tablet extended release 24 hr
1,000 mg PO DAILY
tramadol 50 MG tablet
50 mg PO Q6HPRN PRN (Reason: severe pain) Qty: 6 0RF
oxycodone-acetaminophen 5 MG/325 MG tablet
1 tab PO Q4HPRN PRN (Reason: pain) Qty: 17 0RF
fexofenadine [Karely] 180 MG tablet
180 mg PO DAILY
triamterene-hydrochlorothiazid 1 EACH tablet
1 tab PO DAILY
magnesium citrate 125 MG capsule
250 mg PO BID
Cranberry
1 cap PO DAILY
Kelnor 1-35 28 Tablet
1 tab PO DIRECTED
Vitamin D3
1 cap PO DAILY
labetalol 100 MG tablet
300 mg PO BID
ondansetron 4 mg tablet,disintegrating
4 mg PO Q8H PRN (Reason: nausea and vomiting) Qty: 10 0RF
ondansetron 4 mg tablet,disintegrating
4 mg PO Q8H PRN (Reason: nausea and vomiting) Qty: 10 0RF
Referrals:
Kevyn Ortiz MD [Family Provider] -
Geno Rosado MD [Active] - Call in 1-3 days for appt (Call tomorrow to expedite upper endoscopy)
Activity Restrictions/Additional Instructions:
Thank you for visiting the Emergency Department at [facility].
1. Please schedule a follow up appointment as directed. Call first thing tomorrow morning to make an appointment.
2. If indicated, please take your medications as instructed and indicated on discharge paperwork.
3. If any of your symptoms do not improve, or persist, or become more severe within 6-12 hours, please return to the emergency department for further care.
4. Please return to the emergency department if you develop a headache, neck pain/stiffness, fever greater than 100.4F, chest pain, shortness of breath, persistent nausea, vomiting, slurred speech, difficulty walking, numbness/tingling, weakness,
signs of infection or any other symptoms that are worrisome to you.
Please call [phone] if you have any questions.
Interventions
Interventions:
*Risk Screen - Suicide Last Done: 02/11/24 21:02
*General Assessment Last Done: 02/11/24 21:02
*Neglect/Abuse Screening Last Done: 02/11/24 21:02
*ED COVID-19 Vaccine History Last Done: 02/11/24 21:02
NH-Bkakjy-Skgddsydur Assessment Last Done: 02/11/24 21:43
Discharge Date and Time
Print Language: [place]
[2024-02-11] MEDS: NSS 500 IV (21:29)
[2024-02-11] MEDS: BENADRYL 50 MG IV (21:29)
[2024-02-11] MEDS: REGLAN 10 MG IV (21:30)
[2024-02-11] MEDS: MAALOX 50 PO (21:30)
[2024-02-11 21:42] LABS: HCG, Serum Qualitative Screen Negative
[2024-02-11 21:46] LABS: ALT (SGPT) 16 U/L (0-35); AST (SGOT) 18 U/L (14-36); Albumin 4.2 g/dl (3.5-5.0); Alkaline Phosphatase 85 U/L (38-126); Blood Urea Nitrogen 12 mg/dl (7-17); Calcium 9.8 mg/dl (8.4-10.2); Carbon Dioxide 23 mmol/L (22-30); Chloride 103 mmol/L (98-107); Glucose 118 mg/dl (70-99); Lipase 156 U/L (23-300); Potassium 4.2 mmol/L (3.5-5.1); Sodium 134 mmol/L (135-145); Total Bilirubin 0.3 mg/dl (0.2-1.3); Total Protein 6.7 g/dl (6.3-8.2); eGFR > 60.00
[2024-02-11 21:50] LABS: Hematocrit 32.6 % (37.0-47.0); Hemoglobin 11.3 g/dL (12.0-16.0); Mean Corp Hgb Conc. 34.7 g/dL (33.0-37.0); Mean Corpuscular Hgb 28.3 pg (27.0-31.0); Mean Corpuscular Volume 81.7 fL (81.0-99.0); Mean Platelet Volume 10.2 fL (7.4-10.4); Platelet Count 351 10^3/uL (130-400); Red Blood Cell Count 3.99 10^6/uL (4.20-5.40); Red Cell Dist. Width 13.2 % (11.5-14.5); White Blood Cell Count 13.7 10^3/uL (4.8-10.8)
[2024-02-11 22:00] VITALS: BP 154/103
[2024-02-11] MEDS: DILAUDID 0.5 MG IV (22:05)
[2024-02-11 22:24] LABS: % Basophils 0.4 % (0-2); % Eosinophils 0.8 % (0-6); % Immature Granulocytes 0.3 % (0-0.5); % Lymphocytes 32.7 % (20.5-51.1); % Monocytes 6.1 % (1.7-9.3); % Neutrophils 59.7 % (42.2-75.2); Absolute Basophils 0.1 10^3/uL (0-0.2); Absolute Eosinophils 0.1 10^3/uL (0-0.7); Absolute Lymphocytes 4.5 10^3/uL (1.2-3.4); Absolute Monocytes 0.8 10^3/uL (0.1-0.6); Absolute Neutrophils 8.2 10^3/uL (1.4-6.5); Nucleated Red Blood Cells % 0 %
[2024-02-11] MEDS: PEPCID 20 MG IV (23:15)
[2024-02-11] MEDS: PROTONIX IV 40 MG IV (23:16)
== END 2024-02-11 23:20 | disposition home or self-care (01) ==
LOC: EMR 21:00
PROVIDERS: Emergency Medicine; EMERGENCY PHYSICIAN Emergency Medicine; FAMILY PHYSICIAN Family Medicine
DX: R10.9 Unspecified abdominal pain (principal); E66.9 Obesity, unspecified; I10 Essential (primary) hypertension; K58.9 Irritable bowel syndrome, unspecified; N80.9 Endometriosis, unspecified; E28.2 Polycystic ovarian syndrome; E11.9 Type 2 diabetes mellitus without complications; K21.00 Gastro-esophageal reflux disease with esophagitis, without bleeding; D64.9 Anemia, unspecified; Z82.49 Family history of ischemic heart disease and other diseases of the circulatory system; Z87.19 Personal history of other diseases of the digestive system; Z87.440 Personal history of urinary (tract) infections; Z87.442 Personal history of urinary calculi; Z87.891 Personal history of nicotine dependence; Z90.49 Acquired absence of other specified parts of digestive tract
CPT/HCPCS: 99283; 96374; 96375; 96361; 80053; 81003; 83690; 84703; 85025

== ENCOUNTER 2024-02-17 16:41 | Inpatient (IN) | payer OTHER, SELFPAY ==
[2024-02-17] VITALS (8 sets, daily range): BP systolic 105–119; BP diastolic 55–74; BMI 38.3
[2024-02-17 11:20] LABS: % Basophils 0.3 % (0-2); % Eosinophils 0.3 % (0-6); % Immature Granulocytes 0.6 % (0-0.5); % Lymphocytes 19.8 % (20.5-51.1); % Monocytes 4.8 % (1.7-9.3); % Neutrophils 74.2 % (42.2-75.2); Absolute Basophils 0.1 10^3/uL (0-0.2); Absolute Eosinophils 0.1 10^3/uL (0-0.7); Absolute Immature Granulocytes 0.1 10^3/uL (0-0.05); Absolute Lymphocytes 3.5 10^3/uL (1.2-3.4); Absolute Monocytes 0.8 10^3/uL (0.1-0.6); Hematocrit 38.6 % (37.0-47.0); Hemoglobin 13.4 g/dL (12.0-16.0); Mean Corp Hgb Conc. 34.7 g/dL (33.0-37.0); Mean Corpuscular Hgb 28.3 pg (27.0-31.0); Mean Corpuscular Volume 81.6 fL (81.0-99.0); Mean Platelet Volume 10.2 fL (7.4-10.4); Nucleated Red Blood Cells % 0 %; Platelet Count 413 10^3/uL (130-400); Red Blood Cell Count 4.73 10^6/uL (4.20-5.40); Red Cell Dist. Width 13.4 % (11.5-14.5); White Blood Cell Count 17.5 10^3/uL (4.8-10.8)
[2024-02-17 11:37] LABS: ALT (SGPT) 17 U/L (0-35); AST (SGOT) 21 U/L (14-36); Albumin 4.5 g/dl (3.5-5.0); Alkaline Phosphatase 74 U/L (38-126); Blood Urea Nitrogen 19 mg/dl (7-17); Calcium 10.4 mg/dl (8.4-10.2); Carbon Dioxide 21 mmol/L (22-30); Chloride 101 mmol/L (98-107); Glucose 119 mg/dl (70-99); Lipase 108 U/L (23-300); Potassium 5.4 mmol/L (3.5-5.1); Sodium 132 mmol/L (135-145); Total Bilirubin 0.5 mg/dl (0.2-1.3); Total Protein 7.3 g/dl (6.3-8.2); eGFR > 60.00
[2024-02-17 11:49] LABS: Troponin I < 0.012 ng/ml
[2024-02-17 11:55] LABS: HCG, Serum Qualitative Screen Negative
[2024-02-17] MEDS: DILAUDID 0.5 MG IV ×4 (13:26→22:58)
[2024-02-17] MEDS: ZOFRAN 4 MG IV ×2 (13:26→18:34)
[2024-02-17] MEDS: PEPCID 20 MG IV (13:26)
--- NOTE | 2024-02-17 15:33 | ED.GENMED ---
History of Present Illness
<Blas Roldan MD - Last Filed: 02/17/24 15:36>
General
Chief Complaint: Abdominal Pain
Time Seen by Provider: 02/17/24 12:53
<Neri Silva PA-C - Last Filed: 02/17/24 15:37>
General
Source: patient
History of Present Illness
History of Present Illness:
33-year-old female presents with persistent mid epigastric abdominal pain. She has been here recently for the same. This is her fourth visit for the same. Most recently seen here February 10. The pain is sharp stabbing in nature radiates to the
back. She has been on a regimen of Carafate Pepcid and Protonix without any relief. No fever. No black stools. She has been in contact with GI. She is due for an endoscopy in the near future.
Past History
<Blas Roldan MD - Last Filed: 02/17/24 15:36>
Past History
ED Past Medical History: GERD, HTN, NIDDM and Other (Polycystic ovarian syndrome, Ovarian cyst, UTI, Kidney stones, IBS, endometriosis, hiatal hernia, esophagitis/gastritis)
ED Past Surgical History: Cholecystectomy (February 2015), Gynecological (Laparoscopy for endometriosis, left ovarian cyst February 2019.) and Tonsilectomy
Social History
Tobacco: Former smoker
Alcohol: None
Drug: None
Personal: Single
Living: with family
Employment: Employed
Family History
Family History: Hypertension
Phy Exam
<Neri Silva PA-C - Last Filed: 02/17/24 15:37>
Physical Exam
Physical Exam:
General: Well-appearing female no acute respiratory distress
HEENT: Normal cephalic atraumatic sclera anicteric heart: Regular rate and rhythm no murmurs
Lungs: Clear no wheeze or rales
Abdomen soft tender to the mid and epigastric area mild guarding no rebound tenderness normal bowel sounds
Extremities: No cyanosis
Course
<Blas Roldan MD - Last Filed: 02/17/24 15:36>
Orders/Labs/Results
Orders:
Orders
02/17/24 11:03
EKG [Electrocardiogram (*1)] Urgent
Reason for Study: Abdominal Pain
EKG- Treatment ONCE
Test Result ONCE
02/17/24 11:10
Complete Blood Count/With Diff Urgent
Comprehensive Metabolic Panel Urgent
HCG, Serum Qualitative Screen Urgent
Lipase Urgent
Troponin I Urgent
02/17/24 13:15
Famotidine [Pepcid] 20 mg IV NOW STA
HYDROmorphone [Dilaudid] 0.5 mg IV NOW STA
Ondansetron Injectable [Zofran] 4 mg IV NOW STA
02/17/24 13:16
CT Abd/pelvis W Iv Cont Urgent
Comment:
Reason For Exam: abdominal pain
02/17/24 15:21
HYDROmorphone [Dilaudid] 0.5 mg IV NOW STA
Abnormal Lab Results
02/17/24
11:10
WBC 17.5 H 10^3/uL
(4.8-10.8)
Plt Count 413 H 10^3/uL
(130-400)
Abs Immat Gran (auto) 0.1 H 10^3/uL
(0-0.05)
Absolute Neuts (auto) 13.0 H 10^3/uL
(1.4-6.5)
Absolute Lymphs (auto) 3.5 H 10^3/uL
(1.2-3.4)
Absolute Monos (auto) 0.8 H 10^3/uL
(0.1-0.6)
Immature Gran % 0.6 H %
(0-0.5)
Lymphocytes % 19.8 L %
(20.5-51.1)
Sodium 132 L mmol/L
(135-145)
Potassium 5.4 H mmol/L
(3.5-5.1)
Carbon Dioxide 21 L mmol/L
(22-30)
BUN 19 H mg/dl
(7-17)
Creatinine 1.2 H mg/dL
(0.6-1.0)
Glucose 119 H mg/dl
(70-99)
Calcium 10.4 H mg/dl
(8.4-10.2)
02/17/24 11:10
02/17/24 11:10
Vital Signs
Initial and Last Documented VS:
Initial Vital Signs
Temp Pulse Resp BP Pulse Ox
98.6 F 98 17 110/74 98
02/17/24 11:01 02/17/24 11:01 02/17/24 11:01 02/17/24 11:01 02/17/24 11:01
Last Documented Vital Signs
Temp Pulse Resp BP Pulse Ox
98.6 F 81 17 105/55 98
02/17/24 11:01 02/17/24 12:36 02/17/24 12:36 02/17/24 12:36 02/17/24 12:36
Vnekatlt;Neri Silva PA-C - Last Filed: 02/17/24 15:37>
Orders/Labs/Results
Orders:
Orders
02/17/24 11:03
EKG [Electrocardiogram (*1)] Urgent
Reason for Study: Abdominal Pain
EKG- Treatment ONCE
Test Result ONCE
02/17/24 11:10
Complete Blood Count/With Diff Urgent
Comprehensive Metabolic Panel Urgent
HCG, Serum Qualitative Screen Urgent
Lipase Urgent
Troponin I Urgent
02/17/24 13:15
Famotidine [Pepcid] 20 mg IV NOW STA
HYDROmorphone [Dilaudid] 0.5 mg IV NOW STA
Ondansetron Injectable [Zofran] 4 mg IV NOW STA
02/17/24 13:16
CT Abd/pelvis W Iv Cont Urgent
Comment:
Reason For Exam: abdominal pain
02/17/24 15:21
HYDROmorphone [Dilaudid] 0.5 mg IV NOW STA
Abnormal Lab Results
02/17/24
11:10
WBC 17.5 H 10^3/uL
(4.8-10.8)
Plt Count 413 H 10^3/uL
(130-400)
Abs Immat Gran (auto) 0.1 H 10^3/uL
(0-0.05)
Absolute Neuts (auto) 13.0 H 10^3/uL
(1.4-6.5)
Absolute Lymphs (auto) 3.5 H 10^3/uL
(1.2-3.4)
Absolute Monos (auto) 0.8 H 10^3/uL
(0.1-0.6)
Immature Gran % 0.6 H %
(0-0.5)
Lymphocytes % 19.8 L %
(20.5-51.1)
Sodium 132 L mmol/L
(135-145)
Potassium 5.4 H mmol/L
(3.5-5.1)
Carbon Dioxide 21 L mmol/L
(22-30)
BUN 19 H mg/dl
(7-17)
Creatinine 1.2 H mg/dL
(0.6-1.0)
Glucose 119 H mg/dl
(70-99)
Calcium 10.4 H mg/dl
(8.4-10.2)
02/17/24 11:10
02/17/24 11:10
Vital Signs
Initial and Last Documented VS:
Initial Vital Signs
Temp Pulse Resp BP Pulse Ox
98.6 F 98 17 110/74 98
02/17/24 11:01 02/17/24 11:01 02/17/24 11:01 02/17/24 11:01 02/17/24 11:01
Last Documented Vital Signs
Temp Pulse Resp BP Pulse Ox
98.6 F 81 17 105/55 98
02/17/24 11:01 02/17/24 12:36 02/17/24 12:36 02/17/24 12:36 02/17/24 12:36
<Neri Silva PA-C - Last Filed: 02/17/24 15:37>
MDM/Problems Addressed
Differential Diagnosis Includes:
Persistent mid abdominal pain. Recent workups have demonstrated enteritis. Patient in more pain despite the intervention of Carafate Pepcid and Protonix recommended by GI several days ago. Will check labs. CT ordered. Pain medicine ordered.
<Neri Silva PA-C - Last Filed: 02/17/24 15:37>
*Critical Care Note
Total Time (30-74mins, 75-104mins- exclusive of procedures): Not Applicable
<Neri Silva PA-C - Last Filed: 02/17/24 15:37>
Update Note
Update Note:
Labs reviewed demonstrate increased white count of 17.5. CT demonstrates enteritis. Appendix was normal. Discussed with emergency room attending, GI and will admit to hospital secondary to intractable abdominal pain despite outpatient
interventions
ED Attending Note
<Blas Roldan MD - Last Filed: 02/17/24 15:36>
ED Attending Note
Patient seen and examined by attending physician: Yes
ED Attending Note:
I have seen and evaluated the patient with a [id number] encounter. I have spoken to the advance practicer provider and involved in the medical history, the physical exam, medical decision making.
Evaluation and management service: agree unless noted differently below.
Results interpretation: agree unless noted differently below.
Focused HPI: 33-year-old female with history as documented returns to the emergency room now her third visit for abdominal pain. She reports sharp pain epigastric region radiates towards the umbilicus. Associate with nausea, has been treating at
home with Zomadelyn so no significant vomiting. Seen in the emergency room most recently 02/11/2024 by heydi that point after discussion with GI she was discharged on pantoprazole twice daily, Pepcid nightly, Carafate ACH S as well as instructions for
bland diet. She says despite these inventions she feels symptoms have actually worsened. Thus return to the emergency room. She is supposed to have endoscopy later this week.
Physical exam: Awake alert not in distress. Abdomen soft, moderately tender epigastrium and periumbilical.
Medical Decision Makin-year-old female presents to the emergency room was again for abdominal pain associate with nausea. Exam as above. Repeat labs today show increasing WBC with a leukocytosis of 17.5. She has an HARIS with a creatinine of
1.2, mild hyperkalemia. hCG is negative. CT abdomen pelvis today shows enteritis which is consistent with findings on prior imaging. PA discussed case with GI we will plan to admit for continued evaluation and treatment given escalation of
symptoms.
-
Portions of this chart may have been created with voice recognition software.� Occasional wrong word or��sound alike� substitutions may have occurred due to the inherent limitations of voice recognition software.
Discharge Plan
Departure
Patient Disposition: Admit
Date of Disposition: 02/17/24
Time of Disposition: 15:36
Admit to: Med/Surg
Presentation/result/management discussed w/ accepting MD/DO: Hospitalist
Discharge Problem:
Abdominal pain
Prescriptions:
No Action
lisinopril 20 MG tablet
20 mg PO QPM
amlodipine 5 MG tablet
5 mg PO QPM
metformin 500 MG tablet extended release 24 hr
1,000 mg PO DAILY
tramadol 50 MG tablet
50 mg PO Q6HPRN PRN (Reason: severe pain) Qty: 6 0RF
oxycodone-acetaminophen 5 MG/325 MG tablet
1 tab PO Q4HPRN PRN (Reason: pain) Qty: 17 0RF
fexofenadine [Karely] 180 MG tablet
180 mg PO DAILY
triamterene-hydrochlorothiazid 1 EACH tablet
1 tab PO DAILY
magnesium citrate 125 MG capsule
250 mg PO BID
Cranberry
1 cap PO DAILY
Kelnor 1-35 28 Tablet
1 tab PO DIRECTED
Vitamin D3
1 cap PO DAILY
labetalol 100 MG tablet
300 mg PO BID
ondansetron 4 mg tablet,disintegrating
4 mg PO Q8H PRN (Reason: nausea and vomiting) Qty: 10 0RF
ondansetron 4 mg tablet,disintegrating
4 mg PO Q8H PRN (Reason: nausea and vomiting) Qty: 10 0RF
famotidine [Pepcid] 40 mg tablet
40 mg PO HS Qty: 30 0RF
pantoprazole 40 mg tablet,delayed release (DR/EC)
40 mg PO BID Qty: 60 0RF
Referrals:
Kevyn Ortiz MD [Family Provider] -
Interventions
Interventions:
*Risk Screen - Suicide Last Done: 02/17/24 12:38
*General Assessment Last Done: 02/17/24 12:38
*Neglect/Abuse Screening Last Done: 02/17/24 12:38
*ED COVID-19 Vaccine History Last Done: 02/17/24 12:38
BJ-[id number]-[id number] Assessment Last Done: 02/17/24 12:38
Discharge Date and Time
Print Language: PERUVIAN
--- NOTE | 2024-02-17 16:09 | CON.GI ---
Addendum entered and electronically signed by Dot Jones MD 02/17/24 18:21:
I saw and examined the patient.
The COTTON TIPPER's note was reviewed and I agree with the note.
Comment: This is a 33-year-old female who has past medical history as listed below including GERD, esophagitis, H. pylori gastritis in 2020 was treated with Pylera and eradicated who presented with symptoms of epigastric pain and burning with nausea
vomiting she has been to the ER 4 times since November with similar symptoms. She is scheduled for endoscopy on Thursday with Dr. Rosado but since her symptoms persisted she came back to the ER. She started GLP-1 agonist with Mounjaro in March and
has been having nausea since then but in November she took Augmentin and says that her symptoms worsened after that. She has been on twice daily PPI with Pepcid at bedtime and Carafate added recently without much improvement of symptoms. She was also
on CT in January noted to have possible enteritis so she was scheduled for MR enterography also this Thursday. She has been constipated on the Carafate no diarrhea or rectal bleeding noted. She says that epigastric pain is not aggravated or relieved
with eating. The repeat CT this admission also shows probable enteritis.
Assessment and plan recurrent, refractory epigastric pain with symptoms of n/v and burning possibly related to Mounjaro and possible gastroparesis related to that or dyspepsia symptoms. I told her that she most likely would need to come off of the
GLP-1 agonist given persistent symptoms will schedule her for repeat endoscopy tomorrow to rule out recurrent H. pylori gastritis or peptic ulcer disease. Continue PPI twice daily and will get MR enterography as outpatient to rule out possible
inflammatory bowel disease. Will follow-up with Dr. Rosado after discharge. Given recurrent enteritis less likely viral but hold on antibiotics for now will follow leukocytosis off antibiotics she is afebrile currently. Her LFTs are normal and
her lipase is normal so less likely pancreatitis related to GLP-1 agonist.
Original Note:
Consultation
-
Date/Time Consultation Requested: 02/17/24 1530
Date/Time Consultation Performed: 02/17/24 1600
Requesting Provider: Neri Cuenca PA-C
Performing Provider: PATRICE Cordova, Dot Jones MD
Reason for Consultation: epigastric pain
Medical History
Chief Complaint / HPI
History of Present Illness:
Pt is a 33yo with hx GERD, obesity, PCOS, fatty liver, IBS, prior bhargavi, prior H pylori and esophagitis in 2020 with prior Pylera therapy with eradication with several recent GI visit and 4th ER visit with epigastric abdominal pain with nausea and
vomiting. She Labs notable for WBC 17,500, platelets 413, Na 132, K 5,4, creat 1.2, BUN 19, glucose 119. She has has several imaging studies with persistent enteritis on CT in January and repeat today. Pt scheduled 02/18 for EGD and enterography
but due to pain returns to ER. On admission pt on Protonix, Pepcid, Zofran, Sucralfate, and Dicyclomine. weight with recent 48 lbs wt loss. 2016 111 kg , 2020 99kg, 2021 125.3 kg 02/17/24- 100kg.
In reviewing with patient, she started Mounjaro in March. Since that time some nausea and small amounts of vomiting. In November she took Augmentin for UTI with worsening symptoms. She has been to ER on several occasional one episode she
recall as eating [place] toast. She denies any recent travel, sick contact, or other tainted foods. She admits to GERD with no improvement with multiple medications. She denies diarrhea, but did have constipation with sucralfate. No bleeding. No
NSAID use.
Past Medical History
Past Medical History: HTN, Hypercholesterolemia and Other (GERD, obesity with recent wt loss, allergic rhinitis, edema, PCOS, hepatomegaly with fatty liver, viral gastroenteritis, H pylori, esophagitis )
Past Surgical History: Cholecystectomy
Social History
Tobacco: Non-Smoker
Alcohol: None
Drug: None
Living: Alone (but family assist with current symptoms )
Family History
Family History: Reviewed & Not Pertinent
Allergies / Home Medications
Allergy/AdvReac Type Severity Reaction Status Date / Time
amoxicillin [From Augmentin] Allergy Vomiting Verified 02/11/24 21:02
clavulanic acid Allergy Vomiting Verified 02/11/24 21:02
[From Augmentin]
prochlorperazine Allergy 'weird Verified 01/27/24 13:14
[From Compazine] feeling'
prochlorperazine edisylate Allergy 'weird Verified 01/27/24 13:14
[From Compazine] feeling'
prochlorperazine maleate Allergy 'weird Verified 01/27/24 13:14
[From Compazine] feeling'
control Allergy feet Uncoded 01/27/24 13:14
swell;elevates
blood
pressure
�Medication �Instructions �Recorded
lisinopril 20 mg tablet 20 mg PO QPM Blood pressure 09/29/10
amlodipine 5 mg tablet 5 mg PO QPM Blood pressure 09/01/20
famotidine 40 mg tablet (Pepcid) 40 mg PO HS #30 tabs 02/11/24
pantoprazole 40 mg tablet,delayed 40 mg PO BID #60 tabs 02/11/24
release
cetirizine 10 mg tablet (Zyrtec) 10 mg PO DAILY 02/17/24
dicyclomine 20 mg tablet 20 mg PO TIDPRN PRN ibs 02/17/24
ethynodiol diacetate-ethinyl 1 tab PO DAILY 02/17/24
estradiol 1 mg-35 mcg tablet
(Kelnor)
labetalol 300 mg tablet 150 mg PO TID 02/17/24
ondansetron 4 mg disintegrating 4 mg PO Q8HPRN PRN nausea and 02/17/24
tablet vomiting
spironolactone 100 mg tablet 100 mg PO QPM 02/17/24
spironolactone 100 mg tablet 200 mg PO DAILY 02/17/24
sucralfate 1 gram tablet 1 g PO ACHS 02/17/24
Review of Systems
-
History Source: Patient
Constitutional: Reports Weight Loss, Fatigue and Other (feeling hot )
EENT: Reports No Symptoms
Respiratory: Reports No Symptoms
Cardiac: Reports Chest Pain (burning with symptomns )
Abdomen/GI: Reports Abdominal Pain, Nausea, Vomiting and Constipated (with Sucralfate)
: Reports Other (UTI in November)
Musculoskeletal: Reports No Symptoms
Skin: Reports No Symptoms
Neurological: Reports No Symptoms
Endocrine: Reports No Symptoms
Vital Signs
Temp Pulse Resp BP Pulse Ox
98.6 F 81 17 105/55 98
02/17/24 11:01 02/17/24 12:36 02/17/24 12:36 02/17/24 12:36 02/17/24 12:36
Physical Exam
Exam
General: Well Developed, Well Nourished and Other (anxious with ongoing symptoms but pleasent and cooperative , some exam per Dr. Jones )
HEENT: Normocephalic and Anicteric
Respiratory: Clear
Cardiac: Regular Rhythm
GI: Soft, Non Distended and Tender (epigastric )
Musculoskeletal: No Clubbing and No Cyanosis
Skin: Warm and Dry
Neuro: Awake, Alert and AO x 3
Psych: Calm
Results
WBC 17.5 10^3/uL (4.8-10.8) H 02/17/24 11:10
Hgb 13.4 g/dL (12.0-16.0) 02/17/24 11:10
Hct 38.6 % (37.0-47.0) 02/17/24 11:10
MCV 81.6 fL (81.0-99.0) 02/17/24 11:10
Plt Count 413 10^3/uL (130-400) H 02/17/24 11:10
Absolute Neuts (auto) 13.0 10^3/uL (1.4-6.5) H 02/17/24 11:10
Sodium 132 mmol/L (135-145) L 02/17/24 11:10
Potassium 5.4 mmol/L (3.5-5.1) H 02/17/24 11:10
Chloride 101 mmol/L (98-107) 02/17/24 11:10
Carbon Dioxide 21 mmol/L (22-30) L 02/17/24 11:10
BUN 19 mg/dl (7-17) H 02/17/24 11:10
Creatinine 1.2 mg/dL (0.6-1.0) H 02/17/24 11:10
Calcium 10.4 mg/dl (8.4-10.2) H 02/17/24 11:10
Total Bilirubin 0.5 mg/dl (0.2-1.3) 02/17/24 11:10
AST 21 U/L (14-36) 02/17/24 11:10
ALT 17 U/L (0-35) 02/17/24 11:10
Alkaline Phosphatase 74 U/L (38-126) 02/17/24 11:10
Lipase 108 U/L (23-300) 02/17/24 11:10
Diagnostic Image Results:
05/2023 US abdomen- Mild hepatomegaly with predominantly diffuse fatty liver as well as some areas of likely central/periportal normal sparing.Prior cholecystectomy.
Pancreas and IVC significantly obscured, most likely by overlying bowel gas.
T Abd/Pel (IV only)-DH only
No acute inflammatory process within the abdomen or pelvis.
The appendix is normal.
No bowel obstruction. No obstructive uropathy. Stable 6 mm nonobstructing calculus in the right kidney. Mild hepatomegaly.
01/27/24 CT Abd/pelvis W Iv Cont no oral
1. Moderate wall thickening of small bowel loops in the mid to lower abdomen. Findings are most suggestive of an infectious or inflammatory enteritis.
2. Mild pelvic ascites.
3. Normal appendix.
4. Stable nonobstructing calculus in the lower pole of the right kidney.
02/17/24 CT Abd/pelvis W Iv Cont with oral
Thickening of the wall of several loops of small bowel again seen in the central abdomen with some intervening mild mesenteric stranding, without small bowel obstruction or findings to suggest small bowel pneumatosis. In conjunction with some small
volume free fluid in the dependent true pelvis, findings may be on the basis of ENTERITIS.
Unremarkable appendix.
Stable small nonobstructing right renal calculus.
Prior cholecystectomy.
11/2020 EGD [facility] - Normal examined duodenum.
- Erythematous mucosa in the antrum. Biopsied.
- Small hiatal hernia.
- Z-line variable, 36 cm from the incisors. Biopsied.
Clip was placed.
- No gross lesions in esophagus.
09/2020 EGD [facility] - LA Grade B esophagitis. Biopsied.
- Erythematous mucosa in the antrum. Biopsied.
- Normal duodenal bulb and second portion of the
duodenum.
2010- colonoscopy good prep normal TI and colon bx neg
Assessment / Plan
-
Pt is a 33yo with hx GERD, obesity, PCOS, fatty liver, IBS, prior bhargavi, prior H pylori and esophagitis in 2020 with prior Pylera therapy with eradication with several recent GI visit and 4th ER visit with epigastric abdominal pain with nausea and
vomiting. She Labs notable for WBC 17,500, platelets 413, Na 132, K 5,4, creat 1.2, BUN 19, glucose 119. She has has several imaging studies with persistent enteritis on CT in January and repeat today. Pt scheduled 02/18 for EGD and enterography
but due to pain returns to ER. In reviewing with patient she had started Mounjaro March 2023. She admits to ongoing nausea since that time. Pt denies any travel or sick contact prior to onset.
-epigastric pain with persistent symptoms
-enteritis
-hyponatremia
-leukocytosis
-HARIS
-hyperkalemia
-mild pelvic ascites
other medical problems:
-GERD
-obesity
-hx H pylori
-esophagitis
-fatty liver
-cholelithiasis
-non obstructing renal stones
PLAN:
etiology of nausea, epigastric pain, enteritis, HARIS on admission related to infectious etiology but continued symptoms for weeks, IBD, recent abx use with Augmentin several month ago, Mounjaro use as admits to nausea for months since starting vs
other
LFT's and lipase stable
plan for EGD in AM
consider OP MR enterography after completed ? scheduled Thursday already
add CRP and ESR
NPO after midnight
Last dose Mounjaro 2 weeks ago reviewed if etiology unclear would remain off medication to confirm this is not cause of symptoms
family updated in room
reviewed side effect of Mounjaro - also noted with Side effect HARIS as noted on mild admission
Gastrointestinal: Constipation (6% to 17%)�(table 1), decreased appetite (5% to 11%)�(table 2), diarrhea (12% to 23%)�(table 3), nausea (12% to 29%)�(table 4), vomiting (5% to 13%)�(table 5)
Abdominal distention (3% to 4%), abdominal pain (5% to 10%)�(table 8), dyspepsia (5% to 10%)�(table 9), eructation (3% to 5%), flatulence (1% to 4%), gallbladder disease (acute; including biliary colic, cholecystectomy [0.2%]�(table 10),
cholecystitis [0.2%]�(table 11), and cholelithiasis [<=%]�(table 12)), gastroesophageal reflux disease (2% to 5%)
-
-
Thank you for consultation and allowing me to participate in the patient's care. Please call the client support consultant GI physician during the after hours with any questions or concerns.
--- NOTE | 2024-02-17 16:20 | CM ---
Patient seen at bedside with physician in ED. Patient states that she had a home in [place] one story normally. Patient currently living with mother in a 2 story home with no DME. Patient states that she is independent normally and working.
Patient states that Dr. Trejo is her PCP and that she uses [facility] in [place]. Patient concerned about her father who was admitted yesterday with a stroke in room. Patient states that she plans to return to her mother's home until she is able to
drive and resume activities of daily living. CM will continue to follow for discharge planning needs.
Plan; home with no needs pending medical treatment plan
--- NOTE | 2024-02-17 16:24 | HPS.HSE ---
Family Physician
-
Family Physician: Kevyn Ortiz
Chief Complaint
-
Abdominal pain
History of Present Illness
Patient is a 33-year-old female with a complex medical history which includes endometriosis, polycystic ovarian syndrome, ovarian torsion with cyst, adenomyosis, hyperaldosteronism, H pylori who presents with severe abdominal pain. She states this
is her fourth visit (1 in November, 1 in January, 1 early February, 1 now). She admits to nausea but no vomiting. She admits to constipation from the Carafate which she is taking 4 times per day. She states that moving and talking increase her pain. She
states that she has been eating very bland which has no effect. She denies fevers or chills. She denies bloody or mucousy stools.
Medical History
Past Medical History
Past Medical History: Reports Other
Additional Past Medical History:
H. pylori diagnosed in 2020
Endometriosis diagnosed in 2018
Polycystic ovarian syndrome 2003
Ovarian torsion with cyst
Endo miosis diagnosed in 2018
Hyperaldosterone with secondary hypertension diagnosed in 2007
Past Surgical History: Reports Other
Additional Past Surgical History:
Ovarian surgery
Cholecystectomy
Social History
Tobacco: Non-smoker
Alcohol: None
Drug: None
Family History
Family History: Other (Mother had diabetes, father had hypertension and is admitted now with a recent stroke)
Allergies / Home Medications
Allergies reflects when Allergies were last updated in [facility].
Home Medications with original date entered in [facility]
Allergy/Medication List:
Allergies
Allergy/AdvReac Type Severity Reaction Status Date / Time
amoxicillin [From Augmentin] Allergy Vomiting Verified 02/11/24 21:02
clavulanic acid Allergy Vomiting Verified 02/11/24 21:02
[From Augmentin]
prochlorperazine Allergy 'weird Verified 01/27/24 13:14
[From Compazine] feeling'
prochlorperazine edisylate Allergy 'weird Verified 01/27/24 13:14
[From Compazine] feeling'
prochlorperazine maleate Allergy 'weird Verified 01/27/24 13:14
[From Compazine] feeling'
control Allergy feet Uncoded 01/27/24 13:14
swell;elevates
blood
pressure
Home Medications
lisinopril 20 mg tablet 20 mg PO QPM Blood pressure 09/29/10
amlodipine 5 mg tablet 5 mg PO QPM Blood pressure 09/01/20
famotidine 40 mg tablet (Pepcid) 40 mg PO HS #30 tabs 02/11/24
pantoprazole 40 mg tablet,delayed release 40 mg PO BID #60 tabs 02/11/24
cetirizine 10 mg tablet (Zyrtec) 10 mg PO DAILY 02/17/24
dicyclomine 20 mg tablet 20 mg PO TIDPRN PRN ibs 02/17/24
ethynodiol diacetate-ethinyl estradiol 1 mg-35 mcg tablet (Kelnor) 1 tab PO DAILY 02/17/24
labetalol 300 mg tablet 150 mg PO TID 02/17/24
ondansetron 4 mg disintegrating tablet 4 mg PO Q8HPRN PRN nausea and vomiting 02/17/24
spironolactone 100 mg tablet 100 mg PO QPM 02/17/24
spironolactone 100 mg tablet 200 mg PO DAILY 02/17/24
sucralfate 1 gram tablet 1 g PO ACHS 02/17/24
Review of Systems
-
A 12 point ROS was completed and negative except as noted: Yes
Constitutional: Denies Fever or Chills
EENT: Reports No Symptoms
Respiratory: Reports No Symptoms
Cardiac: Reports No Symptoms
Abdomen/GI: Reports Abdominal Pain, Nausea and Constipated; Denies Vomiting or Diarrhea
: Reports No Symptoms
Musculoskeletal: Reports No Symptoms
Skin: Reports No Symptoms
Neurological: Denies Dizzy or Headache
Endocrine: Reports No Symptoms
Hematologic/Lymphatic: Reports No Symptoms
Psych: Reports No Symptoms
Physical Exam
Vital Signs
Vital Signs
Temp Pulse Resp BP Pulse Ox
98.6 F 81 17 105/55 98
02/17/24 11:01 02/17/24 12:36 02/17/24 12:36 02/17/24 12:36 02/17/24 12:36
Physical Exam
General: Well Developed, Well Nourished and No Apparent Distress
HEENT: NormoCephalic, Anicteric and Atraumatic; No Oxygen
Respiratory: Clear; No Wheezes, Rales, Rhonchi or Crackles
Cardiac: S1/S2 and Regular Rhythm; No Murmur
GI: Soft, Non Distended and Tender (midepigastric and RLQ); No Normal Bowel Sounds (hypoactive)
Musculoskeletal: No Clubbing, No Cyanosis and No Edema
Skin: Warm
Neuro: Awake and Alert
Psych: Calm
Laboratory Results
-
02/17/24 11:10
02/17/24 11:10
Laboratory Results
Total Bilirubin 0.5 mg/dl (0.2-1.3) 02/17/24 11:10
AST 21 U/L (14-36) 02/17/24 11:10
ALT 17 U/L (0-35) 02/17/24 11:10
Alkaline Phosphatase 74 U/L (38-126) 02/17/24 11:10
Troponin I < 0.012 ng/ml 02/17/24 11:10
Lipase 108 U/L (23-300) 02/17/24 11:10
Impression/Plan
-
Pt is a 33 year old female
Abdominal pain--this is the patient's fourth ED visit since November (November,, 2 in February)--she states that she has had severely incapacitating pain since then--she has had a persistently elevated white count dating back to 2020 although to be fair,
no labs between 2020 and 2023 in November--CAT scan this admission shows thickening of the wall of several loops of small bowel with mild mesenteric stranding without small bowel obstruction consistent with enteritis--(CT scan in November 2023 showed no acute
inflammatory process, CAT scan in January showed moderate wall thickening of the small bowel loops suggestive of an infectious or inflammatory enteritis--etiologies could be viral or small bowel overgrowth although patient has no diarrhea, inflammatory
bowel disease such as Crohn's although again patient has no bloody stools and no history to support that--she is afraid that she has an ulcer but patient has been on Carafate, PPI, Pepcid so that is unlikely--ADMIT--patient likely needs
MRI/MRCP--patient actually scheduled for MR enterography this coming Sunday 02/18--consideration should be given to steroids and/or antibiotics, until infection ruled out--patient having no diarrhea--will place patient on IV Protonix drip, n.p.o./IV
fluids--IV Dilaudid for pain--consult GI
Hyperaldosteronism with secondary hypertension--multidrug-resistant--continue amlodipine, labetalol, lisinopril, spironolactone with holding parameters
History of Helicobacter pylori diagnosed 2020--patient may need endoscopy for repeat sampling
History of endometriosis/adenomyosis/ovarian torsion with polycystic ovarian syndrome--patient is not on medications for this other than control--on previous records she had been on metformin, it does not appear that she is on this any longer
DVT prophylaxis
CODE STATUS--full code
[2024-02-17 17:14] LABS: Erythrocyte Sed Rate 17 mm/hour (0-20)
[2024-02-17] MEDS: LR 1000 IV (18:18)
--- NOTE | 2024-02-17 18:31 | TRANSFER ---
Pt admitted into room 418-2 from ER, ambulated from stretcher to bed. AAOx3, complaining of 7/10 'stabbing' pain in abdomen radiating to epigastric region. PRN dilaudid administered, see MAR. Pt educated on plan of care and oriented to room. Call
aragon within reach.
[2024-02-17] MEDS: NORVASC 5 MG PO (18:35)
[2024-02-17] MEDS: ALDACTONE 100 MG PO (18:35)
[2024-02-17] MEDS: PROTONIX 100 IV (19:25)
[2024-02-17] MEDS: TORADOL 10 MG IV (19:34)
[2024-02-17] MEDS: ZESTRIL 20 MG PO (19:49)
[2024-02-17] MEDS: NON-FORMULARY ITEM 1 TABLET PO (21:37)
[2024-02-17] MEDS: MELATONIN 3 MG PO (22:56)
[2024-02-17] MEDS: TRANDATE 150 MG PO (22:56)
[2024-02-18] MEDS: LR 1000 IV ×2 (01:29→08:05)
--- NOTE | 2024-02-18 04:29 | PTCARENOTE ---
Addendum entered by Cassandra Bateman RN 02/18/24 06:52:
BP recheck 103/49, HR 60, O2 99 on RA. Pt reports 'no lightheadedness but see some spots.' Notified PATRICE Viramontes. No new orders. Plan of care ongoing.
Original Note:
~03:00 Pt reporting feeling 'lightheaded.' Manual BP 85/51, HR 62, and O2 98% on RA. Pt denies SOB and difficulty breathing. IV fluids infusing at 150 mL/hr. Notified PATRICE Viramontes. No new orders at this time. Per VISCOSE CELLAR CHARGE HAND, avoid dilaudid and
toradol at this time. Per VISCOSE CELLAR CHARGE HAND, recheck BP in 30 mins. Plan of care ongoing.
Pt asleep. Pt arousable. Recheck manual BP 90/54. HR 66 and O2 98% on RA. Notified PATRICE Viramontes. No new orders at this time. Plan of care ongoing.
[2024-02-18] MEDS: PROTONIX 100 IV (04:42)
[2024-02-18 07:50] VITALS: BP 107/52
[2024-02-18] MEDS: TRANDATE 150 MG PO (08:06)
[2024-02-18] MEDS: ZYRTEC 10 MG PO (08:06)
[2024-02-18] MEDS: NON-FORMULARY ITEM PO ×2 (08:06→08:21)
[2024-02-18] MEDS: ALDACTONE 200 MG PO (08:06)
[2024-02-18] MEDS: TORADOL 10 MG IV (08:22)
[2024-02-18] MEDS: ZOFRAN 4 MG IV (08:42)
[2024-02-18 09:39] VITALS: BP 99/56
[2024-02-18 09:45] VITALS: BP 103/63
[2024-02-18 10:00] VITALS: BP 102/61
[2024-02-18 10:17] VITALS: BP 97/59
[2024-02-18 12:16] LABS: ALT (SGPT) 13 U/L (0-35); AST (SGOT) 18 U/L (14-36); Albumin 3.5 g/dl (3.5-5.0); Alkaline Phosphatase 63 U/L (38-126); Blood Urea Nitrogen 18 mg/dl (7-17); Calcium 9.2 mg/dl (8.4-10.2); Carbon Dioxide 22 mmol/L (22-30); Chloride 104 mmol/L (98-107); Estimated Creatinine Clearance 74 ml/min; Glucose 87 mg/dl (70-99); Lipase 87 U/L (23-300); Magnesium 1.7 mg/dl (1.6-2.3); Potassium 4.4 mmol/L (3.5-5.1); Sodium 132 mmol/L (135-145); Total Bilirubin 0.5 mg/dl (0.2-1.3); Total Protein 5.8 g/dl (6.3-8.2); eGFR > 60.00
--- NOTE | 2024-02-18 13:05 | W.PN.HOSP.TC ---
Today's Communication/Plan
-
d/c
Assessment / Plan
Assessment / Plan
pt is a 33 year old female
Abdominal pain--this is the patient's fourth ED visit since November (November, January, 2 in February)--she states that she has had severely incapacitating pain since then--she has had a persistently elevated white count dating back to 2020 although to be fair,
no labs between 2020 and 2023 in November--CAT scan this admission shows thickening of the wall of several loops of small bowel with mild mesenteric stranding without small bowel obstruction consistent with enteritis--(CT scan in November 2023 showed no acute
inflammatory process, CAT scan in January showed moderate wall thickening of the small bowel loops suggestive of an infectious or inflammatory enteritis)---patient likely needs MRI/MRCP/MR enterography--s/p EGD WNL no ulcer, biopsies taken--GI feels
could be Monjauro related--patient wasactually scheduled for MR enterography this coming Sunday 02/18, now tells me it was cancelled--transition to oral PPI daily, H2 cullen HS, bentyl PRN
Hyperaldosteronism with secondary hypertension--multidrug-resistant--continue amlodipine, labetalol, lisinopril, spironolactone with holding parameters
History of Helicobacter pylori diagnosed 2020--patient may need endoscopy for repeat sampling
History of endometriosis/adenomyosis/ovarian torsion with polycystic ovarian syndrome--patient is not on medications for this other than control--on previous records she had been on metformin, it does not appear that she is on this any longer
DVT prophylaxis
CODE STATUS--full code
Anticipated Discharge: Today
Subjective/Interval History
-
Date of Service: February 18, 2024
pt says in pain (just ate)--looks comfortable
Objective Data
-
Labs:
Laboratory Results
02/18/24 02/18/24
10:34 12:51
WBC Cancelled Pending
Hgb Cancelled Pending
Hct Cancelled Pending
Plt Count Cancelled Pending
Sodium 132 L Pending
Potassium 4.4 Pending
Chloride 104 Pending
Carbon Dioxide 22 Pending
BUN 18 H Pending
Creatinine 1.2 H Pending
Glucose 87 Pending
Calcium 9.2 Pending
Total Bilirubin 0.5 Pending
AST 18 Pending
ALT 13 Pending
Alkaline Phosphatase 63 Pending
Vital Signs:
max temp for 24 hours
02/17/24
23:14
Temp 99.3 F
Vital Signs
Temp Pulse Resp BP Pulse Ox
97.0 F 83 18 97/59 94
02/18/24 10:09 02/18/24 10:14 02/18/24 10:14 02/18/24 10:17 02/18/24 10:00
I&O
02/17/24 02/18/24 02/19/24
06:59 06:59 06:59
Intake Total 2039
Balance 2039
Review of Systems
-
All other systems: Reviewed and negative
Cardiac: Reports Chest Pain
Abdomen/GI: Reports Abdominal Pain
Physical Exam
-
General: Well Developed, Well Nourished and No Apparent Distress (despite pt telling me she is in pain, she does not appear so--able to talk to me, focus, not SOB or distracted)
HEENT: Normocephalic and Atraumatic
Respiratory: Clear to Auscultation; Negative Wheezes or Rhonchi
Cardiac: Regular Rhythm and S1/S2; Negative Murmur
GI: Soft, Nontender, Nondistended and Normal Bowel Sounds
Musculoskeletal: No Clubbing, No Cyanosis and No Edema
Neuro: Awake and Alert
[2024-02-18 13:18] LABS: ALT (SGPT) 15 U/L (0-35); AST (SGOT) 18 U/L (14-36); Albumin 3.5 g/dl (3.5-5.0); Alkaline Phosphatase 58 U/L (38-126); Blood Urea Nitrogen 18 mg/dl (7-17); Calcium 9.4 mg/dl (8.4-10.2); Carbon Dioxide 21 mmol/L (22-30); Chloride 104 mmol/L (98-107); Estimated Creatinine Clearance 74 ml/min; Glucose 101 mg/dl (70-99); Lipase 98 U/L (23-300); Magnesium 1.7 mg/dl (1.6-2.3); Potassium 4.3 mmol/L (3.5-5.1); Sodium 133 mmol/L (135-145); Total Bilirubin 0.5 mg/dl (0.2-1.3); Total Protein 5.9 g/dl (6.3-8.2); eGFR > 60.00
[2024-02-18 13:24] LABS: % Basophils 0.3 % (0-2); % Eosinophils 0.6 % (0-6); % Immature Granulocytes 0.3 % (0-0.5); % Lymphocytes 28.1 % (20.5-51.1); % Monocytes 6.4 % (1.7-9.3); % Neutrophils 64.3 % (42.2-75.2); Absolute Eosinophils 0.1 10^3/uL (0-0.7); Absolute Lymphocytes 3.3 10^3/uL (1.2-3.4); Absolute Monocytes 0.7 10^3/uL (0.1-0.6); Absolute Neutrophils 7.4 10^3/uL (1.4-6.5); Hemoglobin 10.8 g/dL (12.0-16.0); Mean Corp Hgb Conc. 33.8 g/dL (33.0-37.0); Mean Corpuscular Hgb 28.2 pg (27.0-31.0); Mean Corpuscular Volume 83.6 fL (81.0-99.0); Mean Platelet Volume 10.1 fL (7.4-10.4); Nucleated Red Blood Cells % 0 %; Platelet Count 323 10^3/uL (130-400); Red Blood Cell Count 3.83 10^6/uL (4.20-5.40); Red Cell Dist. Width 13.3 % (11.5-14.5); White Blood Cell Count 11.6 10^3/uL (4.8-10.8)
--- NOTE | 2024-02-18 13:36 | CM ---
Patient seen at bedside with physician. Patient for discharge home today. Patient to call [employer] for transportation home. Patient parents are down the [address] as patient father is an inpatient. Patient with no needs for discharge at this time. CM
will continue to follow for discharge planning needs.
Plan; discharge home with no needs.
[2024-02-18 15:14] VITALS: BP 109/55
--- NOTE | 2024-02-18 18:41 | W.DCSUMMARY ---
Discharge Summary
Discharge Data
Date of Admission: 02/17/24
Date of Discharge: 02/18/24
-
Pending Results: Yes
Additional Pending Results:
biopsies and H. pylori testing from EGD
Hospital Course
Primary care physician : Kevyn Ortiz
Principal Discharge diagnosis : Abdominal pain presumed enteritis
Chronic Discharge diagnosis : Secondary hypertension with hyperaldosterone, history of Helicobacter pylori diagnosed in 2020, history of endometriosis/adenomyosis/ovarian torsion with polycystic ovarian syndrome
Hospital Course : Patient was a 33-year-old female with a complex medical history including endometriosis, polycystic ovarian syndrome, hyperaldosteronism with secondary hypertension and H. pylori who presented with severe abdominal pain. She
states this is her fourth visit since November. She admitted to nausea but no vomiting. She admits to constipation from the Carafate which she is taking 4 times per day. She stated that moving and talking increase her pain she describes it as sharp
and in the mid epigastric area. She states that she has been eating very bland which has no effect on the pain. She denies any fevers, chills, bloody, or mucousy stools. Patient was admitted.
Problem #1: Abdominal pain presumed enteritis. Patient was admitted and seen in consultation by GI. She was made n.p.o. with IV fluids and started on IV Protonix drip. Patient underwent EGD on 02/18/2024 which showed a normal esophagus, small
hiatal hernia, normal examined duodenum and biopsies were taken for H. pylori and eosinophilic esophagitis. CAT scan done in the emergency department was consistent with mild mesenteric stranding findings may be on the basis of enteritis. IV
antibiotics, IV steroids were withheld until a formal diagnosis has been made. Of note, patient was saying that she was in severe pain, but her physical exam and demeanor did not necessarily match that of severe pain. She also told me that she had
an MR enterography scheduled for February 19, 2024. She then mentioned that there was not enough room on the schedule for her to have it tomorrow. GI did speak with the MRI department who said that the patient canceled the MR enterography
appointment on February 12, 2024. She has had four CAT scans (1 in November, 1 in January, 2 in February). If patient desires a second opinion, I have encouraged her to attempt to see the GI doctors at [facility] as they do take care of chronic abdominal pain
patient's or [facility] as an alternative. Because no ulcer was found on EGD, twice daily Protonix was decreased to once daily, Carafate 4 times a day was stopped, Pepcid at bedtime was continued and Bentyl was given as needed.
Problem #2: All other medical issues. These include Secondary hypertension with hyperaldosterone, history of Helicobacter pylori diagnosed in 2020, history of endometriosis/adenomyosis/ovarian torsion with polycystic ovarian syndrome. These
medical issues were stable during her hospitalization. Medications were continued as able.
Patient is stable for discharge home at this time. If there are any questions regarding this dictation or her hospital stay, please and hesitate to call. Our office number is [phone].
Time for discharge 35 minutes.
Important imaging findings :
ABDOMEN/PELVIS CT SCAN IMPRESSION:
Thickening of the wall of several loops of small bowel again seen in the central abdomen with some intervening mild mesenteric stranding, without small bowel obstruction or findings to suggest small bowel pneumatosis. In conjunction with some small
volume free fluid in the dependent true pelvis, findings may be on the basis of ENTERITIS.
Unremarkable appendix.
Stable small nonobstructing right renal calculus.
Prior cholecystectomy.
Procedure findings :
ENDOSCOPY Impression:- Normal esophagus.
- Z-line regular, 40 cm from the incisors.
- Small hiatal hernia.
- Normal examined duodenum. Biopsied.
- Biopsies were taken with a cold forceps for
evaluation of eosinophilic esophagitis.
- Biopsies were taken with a cold forceps for
Helicobacter pylori testing.
Discharge Plan
-
Patient Disposition: Home (Routine Discharge)
Discharge Diagnosis/Procedures: Abdominal pain/enteritis by CAT scan, secondary hypertension due to hyperaldosteronism, Helicobacter pylori history, history of endometriosis/adenomyosis/ovarian torsion with polycystic ovarian syndrome
Condition: Good
Diet: As tolerated
Additional Diets: Small frequent meals
Activity: As tolerated
Driving Restrictions: No driving for 24 hours
Bathing Restrictions: None
Referrals:
Kevyn Ortiz MD [Family Provider] - in less than 1 week
Geno Rosado MD [Active] - (as directed)
Prescriptions:
New
dicyclomine 20 mg Tablet
20 mg PO QIDPRN PRN (Reason: abdominal pain) Qty: 60 0RF
pantoprazole 40 mg tablet,delayed release (DR/EC)
40 mg PO DAILY Qty: 30 0RF
oxycodone-acetaminophen [Endocet] 5-325 mg tablet
1 tab PO Q8H PRN (Reason: severe pain) Qty: 20 0RF
Continued
lisinopril 20 MG tablet
20 mg PO QPM
amlodipine 5 MG tablet
5 mg PO QPM
famotidine [Pepcid] 40 mg tablet
40 mg PO HS Qty: 30 0RF
cetirizine [Zyrtec] 10 mg Tablet
10 mg PO DAILY
ethynodiol diac-eth estradiol [Kelnor 35 (28)] 1-35 mg-mcg Tablet
1 tab PO DAILY
spironolactone 100 mg Tablet
200 mg PO DAILY
spironolactone 100 mg Tablet
100 mg PO QPM
labetalol 300 mg Tablet
150 mg PO TID
ondansetron 4 mg tablet,disintegrating
4 mg PO Q8HPRN PRN (Reason: nausea and vomiting)
Discontinued
pantoprazole 40 mg tablet,delayed release (DR/EC)
40 mg PO BID Qty: 60 0RF
sucralfate 1 gram Tablet
1 g PO ACHS
dicyclomine 20 mg Tablet
20 mg PO TIDPRN PRN (Reason: ibs)
Discharge Orders:
Discharge Patient (As Directed); Ordered 02/18/24
Ordered By: Tahira Cano
Discharge Date and Time
Discharge Date/Time: 02/18/24 15:32
Print Language: MONGOLIAN
== END 2024-02-18 15:32 | disposition home or self-care (01) | DRG 392 ==
LOC: 4 WEST ACU 16:41
PROVIDERS: Emergency Medicine; ADMITTING PHYSICIAN Internal Medicine; EMERGENCY PHYSICIAN Emergency Medicine; FAMILY PHYSICIAN Family Medicine; OTHER PHYSICIAN Internal Medicine Gastroenterology
PROC: 0DB78ZX Excision of Stomach, Pylorus, Via Natural or Artificial Opening Endoscopic, Diagnostic (ICD-10-PCS; 2024-02-18)
PROC: 0DB68ZX Excision of Stomach, Via Natural or Artificial Opening Endoscopic, Diagnostic (ICD-10-PCS; 2024-02-18)
PROC: 0DB38ZX Excision of Lower Esophagus, Via Natural or Artificial Opening Endoscopic, Diagnostic (ICD-10-PCS; 2024-02-18)
PROC: 0DB18ZX Excision of Upper Esophagus, Via Natural or Artificial Opening Endoscopic, Diagnostic (ICD-10-PCS; 2024-02-18)
PROC: 0DB98ZX Excision of Duodenum, Via Natural or Artificial Opening Endoscopic, Diagnostic (ICD-10-PCS; 2024-02-18)
DX: K52.9 Noninfective gastroenteritis and colitis, unspecified (principal); E87.1 Hypo-osmolality and hyponatremia; N17.9 Acute kidney failure, unspecified; K76.0 Fatty (change of) liver, not elsewhere classified; I15.2 Hypertension secondary to endocrine disorders; E11.9 Type 2 diabetes mellitus without complications; E66.9 Obesity, unspecified; Z68.38 Body mass index [BMI] 38.0-38.9, adult; E26.9 Hyperaldosteronism, unspecified; E78.00 Pure hypercholesterolemia, unspecified; E87.5 Hyperkalemia; E28.2 Polycystic ovarian syndrome; K44.9 Diaphragmatic hernia without obstruction or gangrene; N20.0 Calculus of kidney; K21.00 Gastro-esophageal reflux disease with esophagitis, without bleeding; Z79.899 Other long term (current) drug therapy; Z87.42 Personal history of other diseases of the female genital tract; Z86.19 Personal history of other infectious and parasitic diseases; Z90.49 Acquired absence of other specified parts of digestive tract; Z87.440 Personal history of urinary (tract) infections; Z87.891 Personal history of nicotine dependence; Z88.0 Allergy status to penicillin; Z88.8 Allergy status to other drugs, medicaments and biological substances; Z82.49 Family history of ischemic heart disease and other diseases of the circulatory system; Z83.3 Family history of diabetes mellitus
CPT/HCPCS: 88305; 74177; 80053; 83690; 83735; 84484; 84703; 85025; 85652; 86140; 88342; 93005; 96374; 96375; 96376; 99285; Q9967

== ENCOUNTER → 2024-02-24 11:00 | Outpatient (REF) | payer OTHER, SELFPAY | LOC: MRI 3T 11:00 | PROVIDERS: ATTENDING PHYSICIAN Physician Assistant; FAMILY PHYSICIAN Family Medicine | DX: R10.9 Unspecified abdominal pain (principal); K52.9 Noninfective gastroenteritis and colitis, unspecified | CPT/HCPCS: 72197; 74183; A9575 ==

== ENCOUNTER → 2024-06-06 07:48 | Outpatient (REF) | payer OTHER, SELFPAY | LOC: RAD 07:48 | PROVIDERS: ATTENDING PHYSICIAN Internal Medicine Endocrinology, Diabetes & Metabolism; FAMILY PHYSICIAN Family Medicine | DX: E11.9 Type 2 diabetes mellitus without complications (principal) | CPT/HCPCS: 78264; A9541 ==

== ENCOUNTER 2024-09-20 08:17 | Emergency (ER) | payer OTHER, SELFPAY ==
[2024-09-20 08:26] VITALS: BP 107/83
[2024-09-20] MEDS: NSS 1000 IV ×2 (09:27→12:02)
[2024-09-20] MEDS: ZOFRAN 4 MG IV ×2 (09:28→13:09)
[2024-09-20] MEDS: PROTONIX IV 40 MG IV (09:32)
[2024-09-20 09:34] VITALS: BMI 44.6
[2024-09-20 09:36] VITALS: BP 108/63
[2024-09-20 09:47] LABS: % Basophils 0.3 % (0-2); % Eosinophils 0.1 % (0-6); % Immature Granulocytes 0.7 % (0-0.5); % Lymphocytes 3.6 % (20.5-51.1); % Neutrophils 90.3 % (42.2-75.2); Absolute Basophils 0.1 10^3/uL (0-0.2); Absolute Immature Granulocytes 0.2 10^3/uL (0-0.05); Absolute Lymphocytes 0.8 10^3/uL (1.2-3.4); Absolute Monocytes 1.1 10^3/uL (0.1-0.6); Absolute Neutrophils 19.7 10^3/uL (1.4-6.5); Hematocrit 40.4 % (37.0-47.0); Hemoglobin 13.8 g/dL (12.0-16.0); Mean Corp Hgb Conc. 34.2 g/dL (33.0-37.0); Mean Corpuscular Hgb 30.1 pg (27.0-31.0); Mean Platelet Volume 10.1 fL (7.4-10.4); Nucleated Red Blood Cells % 0 %; Platelet Count 364 10^3/uL (130-400); Red Blood Cell Count 4.59 10^6/uL (4.20-5.40); Red Cell Dist. Width 13.5 % (11.5-14.5); White Blood Cell Count 21.9 10^3/uL (4.8-10.8)
--- NOTE | 2024-09-20 09:54 | ED.GENMED ---
History of Present Illness
General
Chief Complaint: Abdominal Symptoms
Source: patient and records
Exam Limitations: none
Time Seen by Provider: 09/20/24 09:01
Nursing documentation reviewed up to this point in time: agreed with
History of Present Illness
History of Present Illness:
33-year-old female presents with nausea vomiting diarrhea onset late last evening after eating [place] food, numerous episodes of nonbilious nonbloody vomiting diarrhea does have abdominal cramping seen in the ER before with similar complaints
thought to be due to her GLP medication, she does not have her gallbladder anymore, drinks socially not excess to have a glass of wine last evening, non-smoker no documented fevers, possibly had chills
Past History
Past History
ED Past Medical History: GERD, HTN, NIDDM and Other (Polycystic ovarian syndrome, Ovarian cyst, UTI, Kidney stones, IBS, endometriosis, hiatal hernia, esophagitis/gastritis)
ED Past Surgical History: Cholecystectomy (February 2015), Gynecological (Laparoscopy for endometriosis, left ovarian cyst February 2019.) and Tonsilectomy
Social History
Tobacco: Former smoker
Alcohol: Occasional
Drug: None
Personal: Single
Living: with family
Employment: Employed
Family History
Family History: Hypertension
Phy Exam
Physical Exam
Physical Exam:
Physical Exam
General: 33 female looks uncomfortable
Neck: Lips are dry
Heart: s1/s2 regular rate and rhythm, no murmur. equal radial pulses.
Lungs: no acute respiratory distress. clear bilaterally
Abdomen: Obese mild diffuse tenderness
Neuro: alert and oriented. no focal neurological deficits
Skin: no rash
Psychiatric: well kept. interactive and cooperative
Extremities: no edema.
Course
Orders/Labs/Results
Orders:
Orders
09/20/24 08:57
Test Result ONCE
09/20/24 09:10
0.9% Sodium Chloride 1000 ml [Nss] 1,000 ml IV BOLUS
Ondansetron Injectable [Zofran] 4 mg IV NOW STA
Pantoprazole [Protonix IV] 40 mg IV NOW STA
09/20/24 09:11
Ondansetron Injectable [Zofran] 4 mg .ROUTE .STK-MED ONE
09/20/24 09:30
Complete Blood Count/With Diff Urgent
Comprehensive Metabolic Panel Urgent
HCG, Serum Qualitative Screen Urgent
Lipase Urgent
09/20/24 11:35
0.9% Sodium Chloride 1000 ml [Nss] 1,000 ml IV BOLUS
09/20/24 11:58
Bismuth Subsalicylate [Pepto-Bismol] 2 tablet PO NOW STA
09/20/24 12:42
Ondansetron Injectable [Zofran] 4 mg IV NOW STA
Abnormal Lab Results
09/20/24
09:30
WBC 21.9 H 10^3/uL
(4.8-10.8)
Abs Immat Gran (auto) 0.2 H 10^3/uL
(0-0.05)
Absolute Neuts (auto) 19.7 H 10^3/uL
(1.4-6.5)
Absolute Lymphs (auto) 0.8 L 10^3/uL
(1.2-3.4)
Absolute Monos (auto) 1.1 H 10^3/uL
(0.1-0.6)
Immature Gran % 0.7 H %
(0-0.5)
Neutrophils % 90.3 H %
(42.2-75.2)
Lymphocytes % 3.6 L %
(20.5-51.1)
Potassium 5.7 H mmol/L
(3.5-5.1)
Carbon Dioxide 18 L mmol/L
(22-30)
BUN 23 H mg/dl
(7-17)
Creatinine 1.2 H mg/dL
(0.6-1.0)
Glucose 181 H mg/dl
(70-99)
ALT 49 H U/L
(0-35)
09/20/24 09:30
09/20/24 09:30
Vital Signs
Initial and Last Documented VS:
Initial Vital Signs
Temp Pulse Resp BP Pulse Ox
99.2 F 125 20 107/83 97
09/20/24 08:26 09/20/24 08:26 09/20/24 08:26 09/20/24 08:26 09/20/24 08:26
Last Documented Vital Signs
Temp Pulse Resp BP Pulse Ox
99.2 F 114 22 108/63 97
09/20/24 08:26 09/20/24 11:26 09/20/24 11:26 09/20/24 09:36 09/20/24 11:26
MDM/Problems Addressed
Differential Diagnosis Includes:
Dehydration enteritis Food poisoning norovirus medication effect cyclic vomiting doubt obstruction
MDM/Problems Addressed:
Abdominal pain vomiting
Chronic conditions affecting care: DM, HTN and Previous abdomnial surgery
Acute Exacerbation and/or Progression of Chronic Illness: DM, HTN and Previous abdomnial surgery
*Critical Care Note
Total Time (30-74mins, 75-104mins- exclusive of procedures): Not Applicable
Update Note
Update Note:
1125 update labs noted receiving IV fluids patient feeling better
Still tachycardic has a bit of a sore throat now, will continue to hydrate
1 episode of vomiting and diarrhea since she has been here
1242, patient looks better,
ED Attending Note
-
Portions of this chart may have been created with voice recognition software.� Occasional wrong word or��sound alike� substitutions may have occurred due to the inherent limitations of voice recognition software.
Discharge Plan
Departure
Patient Disposition: Home (Routine Discharge)
Date of Disposition: 09/20/24
Time of Disposition: 12:43
Patient with high blood pressure during this ER visit?: No
Condition: Good
Discharge Problem:
Acute dehydration, Vomiting, Diarrhea
Instructions: Diarrhea in teens and adults, Clear Liquid Diet, Nausea and Vomiting, Adult (DC), BLOOD PRESSURE
Prescriptions:
New
ondansetron 4 mg tablet,disintegrating
4 mg PO Q8H PRN (Reason: nausea and vomiting) Qty: 20 0RF
No Action
lisinopril 20 MG tablet
20 mg PO QPM
amlodipine 5 MG tablet
5 mg PO QPM
famotidine [Pepcid] 40 mg tablet
40 mg PO HS Qty: 30 0RF
cetirizine [Zyrtec] 10 mg Tablet
10 mg PO DAILY
ethynodiol diac-eth estradiol [Kelnor (28)] 1-35 mg-mcg Tablet
1 tab PO DAILY
spironolactone 100 mg Tablet
200 mg PO DAILY
spironolactone 100 mg Tablet
100 mg PO QPM
labetalol 300 mg Tablet
150 mg PO TID
ondansetron 4 mg tablet,disintegrating
4 mg PO Q8HPRN PRN (Reason: nausea and vomiting)
dicyclomine 20 mg Tablet
20 mg PO QIDPRN PRN (Reason: abdominal pain) Qty: 60 0RF
pantoprazole 40 mg tablet,delayed release (DR/EC)
40 mg PO DAILY Qty: 30 0RF
oxycodone-acetaminophen [Endocet] 5-325 mg tablet
1 tab PO Q8H PRN (Reason: severe pain) Qty: 20 0RF
Referrals:
Kevyn Ortiz MD [Family Provider] -
Interventions
Interventions:
*Risk Screen - Suicide Last Done: 09/20/24 08:26
*General Assessment Last Done: 09/20/24 08:26
*Neglect/Abuse Screening Last Done: 09/20/24 08:26
*ED- Fall Risk Assessment Last Done: 09/20/24 09:34
*ED COVID-19 Vaccine History Last Done: 09/20/24 09:34
TL-Hrydvx-Lylpjchkco Assessment Last Done: 09/20/24 10:30
Discharge Date and Time
Print Language: ESTONIAN
[2024-09-20 10:01] LABS: HCG, Serum Qualitative Screen Negative
[2024-09-20 10:03] LABS: AST (SGOT) 27 U/L (14-36); Albumin 4.8 g/dl (3.5-5.0); Alkaline Phosphatase 79 U/L (38-126); Blood Urea Nitrogen 23 mg/dl (7-17); Calcium 9.9 mg/dl (8.4-10.2); Carbon Dioxide 18 mmol/L (22-30); Chloride 105 mmol/L (98-107); Estimated Creatinine Clearance 80 ml/min; Glucose 181 mg/dl (70-99); Lipase 83 U/L (23-300); Potassium 5.7 mmol/L (3.5-5.1); Sodium 136 mmol/L (135-145); Total Bilirubin 0.8 mg/dl (0.2-1.3); Total Protein 7.7 g/dl (6.3-8.2); eGFR > 60.00
[2024-09-20 10:25] LABS: ALT (SGPT) 49 U/L (0-35)
[2024-09-20] MEDS: PEPTO-BISMOL 2 TABLET PO (12:05)
[2024-09-20 13:14] VITALS: BP 130/72
== END 2024-09-20 13:38 | disposition home or self-care (01) ==
LOC: EMR 08:17
PROVIDERS: EMERGENCY PHYSICIAN Emergency Medicine; FAMILY PHYSICIAN Family Medicine
DX: E86.0 Dehydration (principal); R19.7 Diarrhea, unspecified; R11.2 Nausea with vomiting, unspecified; R10.9 Unspecified abdominal pain; E11.9 Type 2 diabetes mellitus without complications; E28.2 Polycystic ovarian syndrome; I10 Essential (primary) hypertension; K58.0 Irritable bowel syndrome with diarrhea; K21.9 Gastro-esophageal reflux disease without esophagitis; G47.30 Sleep apnea, unspecified; F43.10 Post-traumatic stress disorder, unspecified; Z79.84 Long term (current) use of oral hypoglycemic drugs; Z90.49 Acquired absence of other specified parts of digestive tract; Z87.442 Personal history of urinary calculi; Z87.440 Personal history of urinary (tract) infections; Z87.891 Personal history of nicotine dependence; Z88.1 Allergy status to other antibiotic agents; Z88.8 Allergy status to other drugs, medicaments and biological substances
CPT/HCPCS: 99284; 96374; 96375; 96361 ×2; 96376; 80053; 83690; 84703; 85025

== ENCOUNTER → 2024-10-13 07:49 | Outpatient (REF) | payer OTHER, SELFPAY | LOC: HWRAD 07:49 | PROVIDERS: ATTENDING PHYSICIAN Obstetrics & Gynecology; FAMILY PHYSICIAN Family Medicine | DX: N80.9 Endometriosis, unspecified (principal); N80.03 Adenomyosis of the uterus; R10.2 Pelvic and perineal pain | CPT/HCPCS: 76830; 76856 ==

== ENCOUNTER → 2025-02-02 07:04 | Outpatient (REF) | payer OTHER, SELFPAY | LOC: HWRCS 07:04 | PROVIDERS: ATTENDING PHYSICIAN Internal Medicine; FAMILY PHYSICIAN Family Medicine | DX: I10 Essential (primary) hypertension (principal); I44.4 Left anterior fascicular block; K75.81 Nonalcoholic steatohepatitis (NASH) | CPT/HCPCS: 93306 ==

== ENCOUNTER 2025-02-19 12:54 | Emergency (ER) | payer OTHER, SELFPAY ==
[2025-02-19 13:06] VITALS: BP 124/80
--- NOTE | 2025-02-19 14:53 | ED.GENMED ---
History of Present Illness
General
Chief Complaint: Allergic Reaction
Source: patient
Time Seen by Provider: 02/19/25 14:44
History of Present Illness
History of Present Illness:
34-year-old female presents to the emergency room complaining of an allergic reaction. Patient began taking a series of '[place] herbs' which she combines to make it tea. Yesterday she began having some tingling or discomfort in her throat. After
taking her tea today she developed hives over her body. No shortness of breath. This series of herbs were prescribed by a [place] medicine specialist. She took 50 of Benadryl earlier today without much improvement.
Past History
Past History
ED Past Medical History: GERD, HTN, NIDDM and Other (Polycystic ovarian syndrome, Ovarian cyst, UTI, Kidney stones, IBS, endometriosis, hiatal hernia, esophagitis/gastritis)
ED Past Surgical History: Cholecystectomy (February 2015), Gynecological (Laparoscopy for endometriosis, left ovarian cyst February 2019.) and Tonsilectomy
Social History
Tobacco: Former smoker
Alcohol: Occasional
Drug: None
Personal: Single
Living: with family
Employment: Employed
Family History
Family History: Hypertension
Phy Exam
Physical Exam
Physical Exam:
General: Awake, Alert, Oriented X3. No acute distress.
Vitals: unremarkable
Head: Atraumatic
Eyes: Pupils equal, EOMI
Throat: Pharyngeal erythema noted.
Neck: Trachea midline
Lungs: Clear and equal b/l
Heart: Regular rate, no murmurs
Abd: Soft, Nontender, No pulsatile mass
Neuro: Nonfocal
Skin: Hives noted on face, neck and trunk. Also in her axilla.
Extremities: pulses equal b/l, no edema
Course
Orders/Labs/Results
Orders:
Orders
02/19/25 14:52
0.9% Sodium Chloride 500 ml [Nss] 500 ml IV BOLUS
Diphenhydramine [Benadryl] 25 mg IV NOW STA
EPINEPHrine PF [Adrenalin] 0.3 mg IM NOW STA
Famotidine [Pepcid] 20 mg IV NOW STA
Prednisone [Deltasone] 50 mg PO NOW STA
02/19/25 15:22
Diazepam [Valium] 5 mg PO NOW STA
Vital Signs
Initial and Last Documented VS:
Initial Vital Signs
Temp Pulse Resp BP Pulse Ox
98 F 95 16 124/80 98
02/19/25 13:06 02/19/25 13:06 02/19/25 13:06 02/19/25 13:06 02/19/25 13:06
Last Documented Vital Signs
Temp Pulse Resp BP Pulse Ox
98.6 F 86 20 136/81 97
02/19/25 15:30 02/19/25 16:30 02/19/25 15:30 02/19/25 15:30 02/19/25 16:30
MDM/Problems Addressed
Differential Diagnosis Includes:
Allergic reaction, contact dermatitis
MDM/Problems Addressed:
Patient is not having any airway compromise. She is not hypotensive. We will treat her symptomatically with Benadryl, Pepcid, steroids. Will also give a dose of epi more to help with her significant itching and urticaria.
*Pulse Oximetry
SaO2: 98
Oxygen Mode of Delivery: Room air
Patient hypoxic: no
*Critical Care Note
Total Time (30-74mins, 75-104mins- exclusive of procedures): Not Applicable
ED Attending Note
-
Portions of this chart may have been created with voice recognition software.� Occasional wrong word or��sound alike� substitutions may have occurred due to the inherent limitations of voice recognition software.
Discharge Plan
Departure
Patient Disposition: Home (Routine Discharge)
Date of Disposition: 02/19/25
Time of Disposition: 16:33
Patient with high blood pressure during this ER visit?: Yes
Condition: Good
Discharge Problem:
Allergic reaction
Instructions: Allergic reaction - ED discharge instructions
Prescriptions:
New
prednisone 20 mg tablet
40 mg PO DAILY Qty: 8 0RF
No Action
lisinopril 20 MG tablet
20 mg PO QPM
amlodipine 5 MG tablet
5 mg PO QPM
famotidine [Pepcid] 40 mg tablet
40 mg PO HS Qty: 30 0RF
cetirizine [Zyrtec] 10 mg Tablet
10 mg PO DAILY
ethynodiol diac-eth estradiol [Kelnor 35 (28)] 1-35 mg-mcg Tablet
1 tab PO DAILY
spironolactone 100 mg Tablet
200 mg PO DAILY
spironolactone 100 mg Tablet
100 mg PO QPM
labetalol 300 mg Tablet
150 mg PO TID
ondansetron 4 mg tablet,disintegrating
4 mg PO Q8HPRN PRN (Reason: nausea and vomiting)
pantoprazole 40 mg tablet,delayed release (DR/EC)
40 mg PO DAILY Qty: 30 0RF
Referrals:
Kevyn Ortiz MD [Family Provider, Family Practice]
Activity Restrictions/Additional Instructions:
Contact the prescribing the person who prescribed the herbs to you tomorrow to get their input on your reaction. Obviously I would stop taking those herbs. I have sent a prescription for prednisone which you can take 2 pills once a day for 4 days.
You can take 25 mg of Benadryl every 6 hours. Warm baths might also help with the itching.
Interventions
Interventions:
*Risk Screen - Suicide Last Done: 02/19/25 13:11
*General Assessment Last Done: 02/19/25 15:30
*Neglect/Abuse Screening Last Done: 02/19/25 13:11
*ED- Fall Risk Assessment Last Done: 02/19/25 15:30
*ED COVID-19 Vaccine History Last Done: 02/19/25 15:30
*Nursing Disposition Last Done: 02/19/25 16:45
ED- Cardiac Assessment Last Done: 02/19/25 15:30
ED- Pulmonary Assessment Last Done: 02/19/25 15:30
ED-Skin Assessment Last Done: 02/19/25 15:30
Discharge Date and Time
Discharge Date/Time: 02/19/25 16:46
Print Language: [place]
[2025-02-19] MEDS: PEPCID 20 MG IV (15:14)
[2025-02-19] MEDS: BENADRYL 25 MG IV (15:15)
[2025-02-19] MEDS: ADRENALIN 0.3 MG IM (15:15)
[2025-02-19] MEDS: NSS 500 IV (15:19)
[2025-02-19] MEDS: DELTASONE 50 MG PO (15:19)
[2025-02-19] MEDS: VALIUM 5 MG PO (15:26)
[2025-02-19 15:30] VITALS: BP 136/81; BMI 34.9
== END 2025-02-19 16:46 | disposition home or self-care (01) ==
LOC: EMR 12:54
PROVIDERS: EMERGENCY PHYSICIAN Emergency Medicine; FAMILY PHYSICIAN Family Medicine
DX: L50.0 Allergic urticaria (principal); T78.1XXA Other adverse food reactions, not elsewhere classified, initial encounter; X58.XXXA Exposure to other specified factors, initial encounter; E11.9 Type 2 diabetes mellitus without complications; I10 Essential (primary) hypertension; K21.9 Gastro-esophageal reflux disease without esophagitis; K58.9 Irritable bowel syndrome, unspecified; K44.9 Diaphragmatic hernia without obstruction or gangrene; E28.2 Polycystic ovarian syndrome; Z87.891 Personal history of nicotine dependence; Z82.49 Family history of ischemic heart disease and other diseases of the circulatory system
CPT/HCPCS: 99284; 96374; 96375; 96361 ×2; 96372

== ENCOUNTER 2025-02-20 11:22 | Observation (INO) | payer OTHER, SELFPAY ==
[2025-02-20] VITALS (20 sets, daily range): BP systolic 90–134; BP diastolic 47–79; BMI 44.3; BMI 44.0
--- NOTE | 2025-02-20 05:24 | EDRN ---
Pt is supposed to have a surgery she does not want to have so she went to a jordanian medicine doctor and was given jordanian herbs to make tea. , pt's throat started to feel sore and her ears felt 'weird.' Pt noted redness on Thursday-Thursday
which has progressed. Pt in this ED yesterday and says she has gotten redder since. Pt complains of feeling itchy everywhere. Last dose benadryl 50mg at 2300 last night which she says did not help much. Pt took 30mg prednisone 1900 yesterday.
Pt talking in full sentences, no sob.
--- NOTE | 2025-02-20 05:28 | EDRN ---
Pt was unable to get to a pharmacy to get the prednisone Rx given to her in the ED so she took 30mg of her father's prednisone last night.
--- NOTE | 2025-02-20 06:25 | ED.GENMED ---
History of Present Illness
<Neri Silva PA-C - Last Filed: 02/20/25 09:47>
General
Chief Complaint: Allergic Reaction
Source: patient
Exam Limitations: none
Time Seen by Provider: 02/20/25 06:07
History of Present Illness
History of Present Illness:
34-year-old female presents for reevaluation. She was here yesterday treated for an allergic reaction likely to some [place] herbs she has been taking. She notes no significant improvement after the treatment yesterday. She notes redness and
itchiness over her face and trunk and her groin. She last took Benadryl at 11 PM. There has been no vomiting or diarrhea. She also notes using a new shampoo recently but has not since her rash started.
Past History
<Neri Silva PA-C - Last Filed: 02/20/25 09:47>
Past History
ED Past Medical History: GERD, HTN, NIDDM and Other (Polycystic ovarian syndrome, Ovarian cyst, UTI, Kidney stones, IBS, endometriosis, hiatal hernia, esophagitis/gastritis)
ED Past Surgical History: Cholecystectomy (February 2015), Gynecological (Laparoscopy for endometriosis, left ovarian cyst February 2019.) and Tonsilectomy
Social History
Tobacco: Former smoker
Alcohol: Occasional
Drug: None
Personal: Single
Living: with family
Employment: Employed
Family History
Family History: Hypertension
Phy Exam
<Neri Sliva PA-C - Last Filed: 02/20/25 09:47>
Physical Exam
Physical Exam:
General: Well-appearing female no acute distress
HEENT: Normocephalic posterior pharynx erythematous without swelling trismus or drooling no exudate no adenopathy no stridor
Heart: Regular rate and rhythm
Lungs: Clear no wheeze
Extremities: No cyanosis
Skin: Erythema over the face and trunk
Course
<Neri Silva PA-C - Last Filed: 02/20/25 09:47>
Orders/Labs/Results
Orders:
Orders
02/20/25 06:24
0.9% Sodium Chloride 1000 ml [Nss] 1,000 ml IV BOLUS
Dexamethasone Sod Phosphate [Decadron] 10 mg IV NOW STA
Diphenhydramine [Benadryl] 50 mg IV NOW STA
Famotidine [Pepcid] 20 mg IV NOW STA
02/20/25 07:39
EPINEPHrine PF [Adrenalin] 0.3 mg IM NOW STA
02/20/25 07:43
Glucagon [GlucaGen] 1 mg IV NOW STA
02/20/25 09:38
diazePAM [Valium Injection] 5 mg IV NOW STA
02/20/25 11:10
Admit/Transfer Patient As Directed
Co-Sign Provider:
Level of Care: Observation services
Assign to:: Medical/Surgical
Physician / Group: [facility]
Diagnosis: Delayed hypersensitivity reaction
02/20/25 11:12
Code Status As Directed
Resuscitation Status: Full Code
02/20/25 11:18
0.9% Sodium Chloride 1000 ml [Nss] 1,000 ml IV 120 mls/hr
Acetaminophen [Tylenol] 650 mg PO Q6HPRN PRN
Betamethasone Valerate [Betamethasone Valerate 0.1% Cream] See Dose Instructions TOPICAL BID
Cholecalciferol (Vitamin D3) [VITAMIN D3 (cholecalciferol)] 125 mcg PO DAILY
Diphenhydramine [Benadryl] 50 mg IV Q4HPRN PRN
02/20/25 11:18
Activity As Directed
Activity Level: Ambulate
DX Deep Vein Thrombosis Video Routine
02/20/25 12:00
Cetirizine HCl [Zyrtec] 10 mg PO DAILY
Escitalopram Oxalate [Lexapro] 10 mg PO DAILY
02/20/25 12:48
CBC/With Diff [Complete Blood Count/With Diff] Routine
CMP [Comprehensive Metabolic Panel] Routine
02/20/25 16:00
labetalol 150 mg PO TID
02/20/25 18:00
Enoxaparin Sodium [Lovenox] 40 mg SC QPM
02/20/25 22:00
famotidine [Pepcid] 40 mg PO HS
02/21/25 08:00
Lactobac/Bifidobac [Visbiome] 1 cap PO DAILY
Pantoprazole [Protonix] 40 mg PO DAILY
Vital Signs
Initial and Last Documented VS:
Initial Vital Signs
Temp Pulse Resp BP Pulse Ox
98.1 F 99 20 134/70 99
02/20/25 02:06 02/20/25 02:06 02/20/25 02:06 02/20/25 02:06 02/20/25 02:06
Last Documented Vital Signs
Temp Pulse Resp BP Pulse Ox
98.1 F 104 20 101/61 95
02/20/25 02:06 02/20/25 08:45 02/20/25 08:15 02/20/25 08:29 02/20/25 08:45
<Williams Snyder, DO - Last Filed: 02/20/25 13:31>
Orders/Labs/Results
Orders:
Orders
02/20/25 06:24
0.9% Sodium Chloride 1000 ml [Nss] 1,000 ml IV BOLUS
Dexamethasone Sod Phosphate [Decadron] 10 mg IV NOW STA
Diphenhydramine [Benadryl] 50 mg IV NOW STA
Famotidine [Pepcid] 20 mg IV NOW STA
02/20/25 07:39
EPINEPHrine PF [Adrenalin] 0.3 mg IM NOW STA
02/20/25 07:43
Glucagon [GlucaGen] 1 mg IV NOW STA
02/20/25 09:38
diazePAM [Valium Injection] 5 mg IV NOW STA
02/20/25 11:10
Admit/Transfer Patient As Directed
Co-Sign Provider:
Level of Care: Observation services
Assign to:: Medical/Surgical
Physician / Group: Gibran
Diagnosis: Delayed hypersensitivity reaction
02/20/25 11:12
Code Status As Directed
Resuscitation Status: Full Code
02/20/25 11:18
0.9% Sodium Chloride 1000 ml [Nss] 1,000 ml IV 120 mls/hr
Acetaminophen [Tylenol] 650 mg PO Q6HPRN PRN
Betamethasone Valerate [Betamethasone Valerate 0.1% Cream] See Dose Instructions TOPICAL BID
Cholecalciferol (Vitamin D3) [VITAMIN D3 (cholecalciferol)] 125 mcg PO DAILY
Diphenhydramine [Benadryl] 50 mg IV Q4HPRN PRN
02/20/25 11:18
Activity As Directed
Activity Level: Ambulate
DX Deep Vein Thrombosis Video Routine
02/20/25 12:00
Cetirizine HCl [Zyrtec] 10 mg PO DAILY
Escitalopram Oxalate [Lexapro] 10 mg PO DAILY
02/20/25 12:48
CBC/With Diff [Complete Blood Count/With Diff] Routine
CMP [Comprehensive Metabolic Panel] Routine
02/20/25 16:00
labetalol 150 mg PO TID
02/20/25 18:00
Enoxaparin Sodium [Lovenox] 40 mg SC QPM
02/20/25 22:00
famotidine [Pepcid] 40 mg PO HS
02/21/25 08:00
Lactobac/Bifidobac [Visbiome] 1 cap PO DAILY
Pantoprazole [Protonix] 40 mg PO DAILY
Vital Signs
Initial and Last Documented VS:
Initial Vital Signs
Temp Pulse Resp BP Pulse Ox
98.1 F 99 20 134/70 99
02/20/25 02:06 02/20/25 02:06 02/20/25 02:06 02/20/25 02:06 02/20/25 02:06
Last Documented Vital Signs
Temp Pulse Resp BP Pulse Ox
98.1 F 104 20 101/61 95
02/20/25 02:06 02/20/25 08:45 02/20/25 08:15 02/20/25 08:29 02/20/25 08:45
<Neri Silva PA-C - Last Filed: 02/20/25 09:47>
MDM/Problems Addressed
Differential Diagnosis Includes:
Allergic reaction likely to the [place] herbs she has been taking. Unrelieved with treatments yesterday. Most recent blood pressure with systolic 92. No respiratory distress. Will hydrate give Decadron Benadryl and Pepcid.
If symptoms persist or BP remains low consider epinephrine again.
<Neri Silva PA-C - Last Filed: 02/20/25 09:47>
*Pulse Oximetry
SaO2: 99
Oxygen Mode of Delivery: Room air
Patient hypoxic: no
*Critical Care Note
Total Time (30-74mins, 75-104mins- exclusive of procedures): Not Applicable
<Neri Silva PA-C - Last Filed: 02/20/25 09:47>
Update Note
Update Note:
Case discussed with emergency room attending who saw the patient as well. Patient's symptoms persisted despite Decadron Benadryl and Pepcid here. Epinephrine was given. Patient with minimal improvement. Blood pressure was on the lower side
initially. This is her second visit in 2 days for the same. Given recalcitrant symptoms persistent allergic reaction, will to hospital
ED Attending Note
<Neri Silva PA-C - Last Filed: 02/20/25 09:47>
-
Portions of this chart may have been created with voice recognition software.� Occasional wrong word or��sound alike� substitutions may have occurred due to the inherent limitations of voice recognition software.
<Williams Snyder, DO - Last Filed: 02/20/25 13:31>
ED Attending Note
Patient seen and examined by attending physician: Yes
ED Attending Note:
I have reviewed and agree with history and treatment plan by Jonh Silva. My exam revealed 34-year-old female in discomfort, diffuse erythema. Unclear etiology of reaction, possibly due to medication. Continue discomfort. Admit to
hospitalist. Minimal change with IM epinephrine.
Discharge Plan
Departure
Patient Disposition: Admit
Date of Disposition: 02/20/25
Time of Disposition: 09:47
Presentation/result/management discussed w/ accepting MD/DO: Hospitalist
Discharge Problem:
Allergic reaction
Interventions
Interventions:
*Risk Screen - Suicide Last Done: 02/20/25 02:06
*General Assessment Last Done: 02/20/25 02:06
*Neglect/Abuse Screening Last Done: 02/20/25 05:13
*ED- Fall Risk Assessment Last Done: 02/20/25 05:14
ED- Cardiac Assessment Last Done: 02/20/25 06:47
ED- Pulmonary Assessment Last Done: 02/20/25 05:33
ED-Skin Assessment Last Done: 02/20/25 05:33
[2025-02-20] MEDS: NSS 1000 IV ×2 (06:34→12:38)
[2025-02-20] MEDS: BENADRYL 50 MG IV ×4 (06:35→22:14)
[2025-02-20] MEDS: PEPCID 20 MG IV (06:38)
[2025-02-20] MEDS: DECADRON 10 MG IV (06:41)
[2025-02-20] MEDS: ADRENALIN 0.3 MG IM (08:08)
--- NOTE | 2025-02-20 11:14 | HPS.HSE ---
Family Physician
-
Family Physician: Kevyn Ortiz
Chief Complaint
-
Allergic reaction
History of Present Illness
34-year-old female here complaining of rash, itching, allergic reaction.
Was evaluated in the emergency room yesterday for similar complaints and discharged.
She believes that the the cause is [place] herbs that she started taking Thursday of last week. She went to a [place] physician in [facility] for an opinion on treatment of her hidradenitis suppurativa. He prescribed [place] herbs that
she took in tea, and she drank it twice daily between Thursday and Thursday of last week.
Symptoms of allergic reaction consisting of rash and itching started evening and persisted throughout the weekend.
She denies any other new exposures to medications or substances.
Noted to be hypotensive in the emergency room but patient denies lightheadedness or dizziness.
She did not take any of her home medications today.
Medical History
Past Medical History
Past Medical History: Reports Other
Additional Past Medical History:
Hidradenitis suppurativa
Polycystic ovarian syndrome
Endometriosis
Mixed hyperlipidemia
Primary hyperaldosteronism
ALVAREZ
DM2
GERD
History of H. pylori
Anal fissure
Ovarian torsion with cyst
Past Surgical History: Reports Other
Additional Past Surgical History:
Anal chemodenervation with Botox
Cholecystectomy
Fulguration of endometriosis, dilation and curettage and lysis of adhesions
Social History
Tobacco: Non-smoker
Alcohol: None
Drug: None
Family History
Family History: Not pertinent
Allergies / Home Medications
Allergies reflects when Allergies were last updated in [facility].
Home Medications with original date entered in [facility]
Allergy/Medication List:
Allergies
Allergy/AdvReac Type Severity Reaction Status Date / Time
amoxicillin (From Augmentin) Allergy Vomiting Verified 02/20/25 05:15
clavulanic acid (From Allergy Vomiting Verified 02/20/25 05:15
Augmentin)
prochlorperazine (From Allergy 'weird Verified 02/20/25 05:15
Compazine) feeling'
prochlorperazine edisylate Allergy 'weird Verified 02/20/25 05:15
(From Compazine) feeling'
prochlorperazine maleate Allergy 'weird Verified 02/20/25 05:15
(From Compazine) feeling'
control Allergy feet Uncoded 02/20/25 05:15
swell;elevates
blood
pressure
Home Medications
lisinopril 20 mg tablet 20 mg PO QPM Blood pressure 09/29/10
cetirizine 10 mg tablet (Zyrtec) 10 mg PO DAILY Allergies 02/17/24
labetalol 300 mg tablet 150 mg PO TID Blood Pressure 02/17/24
spironolactone 100 mg tablet 100 mg PO QPM Blood Pressure 02/17/24
spironolactone 100 mg tablet 200 mg PO DAILY Blood Pressure 02/17/24
Lactobac no.2-Bifidobac no.1-S. thermo 112.5 billion cell capsule (Visbiome) 1 cap PO DAILY 02/20/25
[place]ja-Inositol 3 cap PO DAILY Supplement 02/20/25
cholecalciferol (vitamin D3) 125 mcg (5,000 unit) tablet (Vitamin D3) 125 mcg PO DAILY Supplement 02/20/25
drospirenone (contraceptive) 4 mg (28) tablet (Slynd) 4 mg PO HS CONTRACEPTIVE 02/20/25
escitalopram oxalate 10 mg tablet (Lexapro) 10 mg PO DAILY Mental Health/Anxiety 02/20/25
famotidine 40 mg tablet (Pepcid) 40 mg PO HS Gastrointestinal Issue 02/20/25
magnesium citrate,mag oxide 250 mg capsule 250 mg PO DAILY Supplement 02/20/25
pantoprazole 40 mg tablet,delayed release 40 mg PO DAILY Fluid Retention/Swelling 02/20/25
tirzepatide 5 mg/0.5 mL subcutaneous pen injector (Mounjaro) 5 mg SC WE Diabetes 02/20/25
turmeric 400 mg capsule 400 mg PO DAILY Supplement 02/20/25
Review of Systems
-
History Source: Patient
A 12 point ROS was completed and negative except as noted: Yes
Physical Exam
Vital Signs
Vital Signs
Temp Pulse Resp BP Pulse Ox
98.1 F 104 20 101/61 95
02/20/25 02:06 02/20/25 08:45 02/20/25 08:15 02/20/25 08:29 02/20/25 08:45
Physical Exam
General: Well Developed, Well Nourished, Comfortable and Appears in Distress (Pruritus)
HEENT: NormoCephalic, Anicteric and Moist mucous membranes
Respiratory: Clear
Cardiac: S1/S2 and Regular Rhythm
Breast: Deferred by me
GI: Soft, Non Tender and Non Distended
Genito-urinary: Deferred by me
Musculoskeletal: No Clubbing, No Cyanosis and No Edema
Skin: Warm, Dry and Other (Spreading maculopapular rash on chest and abdomen and back)
Neuro: AO x 3
Hematologic/Lymphatic: No Lymphadenopathy
Psych: Calm
Impression/Plan
-
Type for delayed hypersensitivity reaction -suspect due to [place] herbal medication exposure. Admit to [facility] for symptom management.
Continue IV fluids, antihistamines. Received a dose of Decadron this morning.
Resume cetirizine. Resume Pepcid. Monitor blood pressures. Hold antihypertensives given hypotension.
Secondary hypertension -due to primary hyperaldosteronism.
Hidradenitis suppurativa
Morbid obesity due to excess calories
Full code
--- NOTE | 2025-02-20 12:05 | CM ---
CM reviewed chart and met with pt bedside in ED. Lives alone, 1 story home. independent in ADLs, personal care and ambulation at baseline. No DME. She will probably stay with her parents in [place] at discharge.
Confirms prescription coverage.
OBS form reviewed and signed.
No hx VN/SNF
PCP: Kevyn Ortiz
Pharmacy: [facility]
Anticipate discharge home, no needs. CM will continue to follow for any discharge planning needs
[2025-02-20] MEDS: TYLENOL 650 MG PO ×2 (12:33→20:20)
[2025-02-20] MEDS: LEXAPRO 10 MG PO (12:34)
[2025-02-20] MEDS: ZYRTEC 10 MG PO (12:34)
[2025-02-20] MEDS: VALIUM INJECTION 5 MG IV (12:47)
[2025-02-20 13:02] LABS: Hematocrit 33.5 % (37.0-47.0); Hemoglobin 11.0 g/dL (12.0-16.0); Mean Corp Hgb Conc. 32.8 g/dL (33.0-37.0); Mean Corpuscular Volume 87.2 fL (81.0-99.0); Nucleated Red Blood Cells % 0 %; Platelet Count 319 10^3/uL (130-400); Red Cell Dist. Width 13.3 % (11.5-14.5)
[2025-02-20 13:20] LABS: AST (SGOT) 24 U/L (14-36); Albumin 4.6 g/dl (3.5-5.0); Alkaline Phosphatase 91 U/L (38-126); Blood Urea Nitrogen 21 mg/dl (7-17); Calcium 9.6 mg/dl (8.4-10.2); Carbon Dioxide 14 mmol/L (22-30); Chloride 107 mmol/L (98-107); Estimated Creatinine Clearance 87 ml/min; Glucose 264 mg/dl (70-99); Potassium 4.9 mmol/L (3.5-5.1); Sodium 134 mmol/L (135-145); Total Protein 7.3 g/dl (6.3-8.2); eGFR > 60.00
--- NOTE | 2025-02-20 13:22 | EDRN ---
the patients carbon dioxide came back at 14, this RN notified Dr. Leary
--- NOTE | 2025-02-20 13:23 | EDRN ---
Dr. Leary is aware of carbon dioxide level, no new orders at this time
[2025-02-20 13:26] LABS: ALT (SGPT) 34 U/L (0-35)
--- NOTE | 2025-02-20 13:50 | EDRN ---
the patients lunch tray arrived and this RN brought it to the patient
[2025-02-20] MEDS: VITAMIN D3 (cholecalciferol) 125 MCG PO (13:52)
[2025-02-20] MEDS: SODIUM BICARBONATE 1150 MEQ IV (13:55)
[2025-02-20] MEDS: BETAMETHASONE VALERATE 0.1% CREAM 1 APPLIC TOPICAL (14:01)
[2025-02-20] MEDS: LEXAPRO PO (14:03)
[2025-02-20] MEDS: ZYRTEC PO (14:03)
--- NOTE | 2025-02-20 18:36 | EDRN ---
the pt refused SQ Lovenox and refused to allow this RN to check her blood sugar, the pt asked this RN why this RN was checking her blood sugar, the pt then stated, 'I don't need my blood sugar checked, i don't get insulin so no i don't want my blood
sugar checked', provider notified, Sodium Bicarb running, IV flushed and patent with positive blood return, no s/s of infiltration or phlebitis at the site and no c/o pain at the site, VS WNL, no s/s of distress, the pt verbalizes being frustrated
because, 'I feel like nothing is working for me and i feel like you people just keep giving me medications as a band aid, I just want to talk to the doctor', provider notified that the pt wants to speak to them, will continue to monitor the pt
closely
[2025-02-20] MEDS: BETAMETHASONE VALERATE 0.1% CREAM TOPICAL (20:15)
[2025-02-20] MEDS: NON-FORMULARY ITEM 1 UNIT PO (20:15)
[2025-02-20] MEDS: PEPCID 40 MG PO (20:20)
--- NOTE | 2025-02-20 20:56 | W.PN.UPDATE ---
Update Note
Progress Note Update
Asked to see patient to discuss code status. Patient is very insistent that she wants to be DNR. Reviewed with patient that DNR is no CPR and no mechanical ventilation. Patient verbalizes understanding. She states she has so many health problems at
the age of 34 and if it is her time, she wants to go. She wrote DNR on her arm. Code status updated in chart.
[2025-02-20 21:36] LABS: Glucose - Point of Care 204 mg/dl (70-99)
[2025-02-20] MEDS: MELATONIN 10 MG PO (22:20)
[2025-02-21] MEDS: SODIUM BICARBONATE 1150 MEQ IV (00:19)
[2025-02-21] MEDS: BENADRYL 50 MG IV ×2 (04:39→11:00)
[2025-02-21 07:44] LABS: Glucose - Point of Care 121 mg/dl (70-99)
[2025-02-21 07:52] VITALS: BP 105/59
[2025-02-21] MEDS: BETAMETHASONE VALERATE 0.1% CREAM TOPICAL (08:02)
[2025-02-21] MEDS: LEXAPRO 10 MG PO (08:04)
[2025-02-21] MEDS: PROTONIX 40 MG PO (08:04)
[2025-02-21] MEDS: VISBIOME 1 CAP PO (08:04)
[2025-02-21] MEDS: VITAMIN D3 (cholecalciferol) 125 MCG PO (08:04)
[2025-02-21] MEDS: ZYRTEC 10 MG PO (08:04)
[2025-02-21 09:00] LABS: Glycohemoglobin (HgbA1c) 6.1 % (4.0-5.6)
[2025-02-21 09:10] LABS: Hematocrit 32.2 % (37.0-47.0); Hemoglobin 10.7 g/dL (12.0-16.0); Mean Corp Hgb Conc. 33.2 g/dL (33.0-37.0); Mean Corpuscular Volume 85.4 fL (81.0-99.0); Nucleated Red Blood Cells % 0 %; Red Cell Dist. Width 13.3 % (11.5-14.5)
[2025-02-21] MEDS: MUCINEX 600 MG PO (09:37)
--- NOTE | 2025-02-21 10:31 | W.PN.HOSP.TC ---
Today's Communication/Plan
-
Discharge
Assessment / Plan
Assessment / Plan
Gen-AAOx3, NAD
HEENT-NC, AT, anicteric, clear oral mm
Neck-supple
CV-reg, no M, +S1/S2
Lungs-clear B/L
Abd-soft, NT, ND
Ext-no edema
Musculoskeletal-no cyanosis, clubbing
Skin-fading maculopapular rash on chest and abdomen, face
Neuro-grossly non-focal
Psych-calm, cooperative
Type for delayed hypersensitivity reaction -suspect due to [place] herbal medication exposure.
Still with ongoing symptoms but rash somewhat better compared to yesterday.
I explained to patient that it could take up to 2 weeks for rash to resolve.
Can double up Zyrtec to 10 mg twice daily.
Continue steroids on discharge. Benadryl as needed.
Given complaints of GERD, increase Protonix to twice daily on discharge. Continue Pepcid at bedtime.
Follow-up with PCP.
If no improvement then she will need to see dermatology as an outpatient.
Secondary hypertension -due to primary hyperaldosteronism.
Hidradenitis suppurativa
Morbid obesity due to excess calories
Full code
Updated mother at the bedside. Medically stable for discharge.
32 minutes spent in discharge process.
Anticipated Discharge: Today
Subjective/Interval History
-
Date of Service: February 21, 2025
Patient seen and examined. Complaining of ongoing rash and itching. Heartburn symptoms.
Objective Data
-
Labs:
Laboratory Results
02/21/25 02/21/25 02/21/25
07:36 09:16 09:32
WBC 18.7 H
Hgb 10.7 L
Hct 32.2 L
Plt Count
Sodium Cancelled Cancelled Pending
Potassium Cancelled Cancelled Pending
Chloride Cancelled Cancelled Pending
Carbon Dioxide Cancelled Cancelled Pending
BUN Cancelled Cancelled Pending
Creatinine Cancelled Cancelled Pending
Glucose Cancelled Cancelled Pending
Calcium Cancelled Cancelled Pending
Vital Signs:
Vital Signs
Temp Pulse Resp BP Pulse Ox
98 F 82 18 105/59 99
02/21/25 07:52 02/21/25 09:38 02/21/25 07:52 02/21/25 09:38 02/21/25 07:52
I&O
02/20/25 02/21/25 02/22/25
06:59 06:59 06:59
Intake Total 1739 / 1739
Balance 1739 / 1739
Review of Systems
-
History Source: Patient
All other systems: Reviewed and negative
--- NOTE | 2025-02-21 10:34 | W.DS.TRANS ---
DC Summary - Forensics Analyst
-
Discharge Instructions:
Discharge Diagnosis/Procedures Delayed hypersensitivity reaction
Diet Diabetic, Carb Controlled
Activity As tolerated
Driving Restrictions As prior to admission
Bathing Restrictions None
Instructions:
Stand-Alone Forms:
Changes to Home Medications: No
Discharge Medications:
DC Medications w/original date entered in [employer]
lisinopril 20 mg tablet 20 mg PO QPM Blood pressure 09/29/10
labetalol 300 mg tablet 150 mg PO TID Blood Pressure 02/17/24
spironolactone 100 mg tablet 100 mg PO QPM Blood Pressure 02/17/24
spironolactone 100 mg tablet 200 mg PO DAILY Blood Pressure 02/17/24
Lactobac no.2-Bifidobac no.1-S. thermo 112.5 billion cell capsule (Visbiome) 1 cap PO DAILY Supplement 02/20/25
cholecalciferol (vitamin D3) 125 mcg (5,000 unit) tablet (Vitamin D3) 125 mcg PO DAILY Supplement 02/20/25
drospirenone (contraceptive) 4 mg (28) tablet (Slynd) 4 mg PO HS CONTRACEPTIVE 02/20/25
escitalopram oxalate 10 mg tablet (Lexapro) 10 mg PO DAILY Mental Health/Anxiety 02/20/25
famotidine 40 mg tablet (Pepcid) 40 mg PO HS Gastrointestinal Issue 02/20/25
magnesium citrate,mag oxide 250 mg capsule 250 mg PO DAILY Supplement 02/20/25
tirzepatide 5 mg/0.5 mL subcutaneous pen injector (Mounjaro) 5 mg SC WE Diabetes 02/20/25
betamethasone valerate 0.1 % topical cream 1 applic topical BID #15 grams 02/21/25
cetirizine 10 mg tablet 10 mg PO BID #60 tabs 02/21/25
dexamethasone 4 mg tablet 8 mg (2 x 4 mg) PO DAILY #14 tabs 02/21/25
pantoprazole 40 mg tablet,delayed release 40 mg PO BID #60 tabs 02/21/25
Home Medication Changes
Pending Results: No
--- NOTE | 2025-02-21 10:47 | CM ---
Chart reviewed. Patient will d/c home today
No CM needs identified at this time
Plan: Home, no needs
[2025-02-21] MEDS: FLUSH (NSS) 1 FLUSH IV (11:00)
[2025-02-21 11:08] LABS: Blood Urea Nitrogen 27 mg/dl (7-17); Calcium 9.7 mg/dl (8.4-10.2); Carbon Dioxide 28 mmol/L (22-30); Chloride 102 mmol/L (98-107); Estimated Creatinine Clearance 105 ml/min; Glucose 137 mg/dl (70-99); Potassium 4.0 mmol/L (3.5-5.1); Sodium 137 mmol/L (135-145); eGFR > 60.00
[2025-02-21 11:41] LABS: Glucose - Point of Care 116 mg/dl (70-99)
[2025-02-21 11:50] VITALS: BP 124/66
== END 2025-02-21 13:30 | disposition home or self-care (01) ==
LOC: 4 EAST ACU 11:22
PROVIDERS: ADMITTING PHYSICIAN Hospitalist; EMERGENCY PHYSICIAN Emergency Medicine; FAMILY PHYSICIAN Family Medicine
DX: R21 Rash and other nonspecific skin eruption (principal); T50.905A Adverse effect of unspecified drugs, medicaments and biological substances, initial encounter; E66.01 Morbid (severe) obesity due to excess calories; I15.9 Secondary hypertension, unspecified; L73.2 Hidradenitis suppurativa; K21.9 Gastro-esophageal reflux disease without esophagitis; E11.9 Type 2 diabetes mellitus without complications; E26.09 Other primary hyperaldosteronism; Z68.41 Body mass index [BMI] 40.0-44.9, adult; Z79.899 Other long term (current) drug therapy; Z87.891 Personal history of nicotine dependence; E28.2 Polycystic ovarian syndrome; E78.2 Mixed hyperlipidemia
CPT/HCPCS: 80048; 80053; 82010; 82962; 83036; 85025; 87070; 96361; 96374; 96375; 99285; G0378; J1610

== ENCOUNTER 2025-05-07 17:25 | Emergency (ER) | payer OTHER, SELFPAY ==
[2025-05-07 17:30] VITALS: BP 180/109
[2025-05-07 17:59] LABS: Hematocrit 36.8 % (37.0-47.0); Hemoglobin 12.4 g/dL (12.0-16.0); Mean Corp Hgb Conc. 33.7 g/dL (33.0-37.0); Mean Corpuscular Volume 83.1 fL (81.0-99.0); Nucleated Red Blood Cells % 0 %; Platelet Count 418 10^3/uL (130-400); Red Cell Dist. Width 13.2 % (11.5-14.5)
[2025-05-07 18:23] LABS: ALT (SGPT) 26 U/L (0-35); AST (SGOT) 19 U/L (14-36); Albumin 5.1 g/dl (3.5-5.0); Alkaline Phosphatase 99 U/L (38-126); Blood Urea Nitrogen 18 mg/dl (7-17); Calcium 11.7 mg/dl (8.4-10.2); Carbon Dioxide 22 mmol/L (22-30); Chloride 98 mmol/L (98-107); Glucose 136 mg/dl (70-99); Potassium 5.2 mmol/L (3.5-5.1); Sodium 131 mmol/L (135-145); Total Protein 8.5 g/dl (6.3-8.2); eGFR 55.00
[2025-05-07 20:02] VITALS: BMI 46.8
[2025-05-07] MEDS: NSS 1000 IV (20:08)
[2025-05-07] MEDS: ZOFRAN 4 MG IV ×2 (20:18→21:32)
[2025-05-07] MEDS: VANCOCIN 540 MG IV (20:20)
[2025-05-07 20:31] VITALS: BP 131/89
[2025-05-07 20:38] LABS: HCG, Serum Qualitative Screen Negative
[2025-05-07] MEDS: DILAUDID 0.5 MG IV (21:32)
[2025-05-07 21:37] VITALS: BP 140/79
--- NOTE | 2025-05-07 21:46 | ED.GENMED ---
History of Present Illness
<MICA Carr Jr. Last Filed: 05/08/25 14:44>
General
Chief Complaint: Post Operative Problem(s)
Source: patient and family
Exam Limitations: none
Time Seen by Provider: 05/07/25 19:28
Nursing documentation reviewed up to this point in time: agreed with
History of Present Illness
History of Present Illness:
34-year-old female past medical history of endometriosis ovarian cysts renal stones PCOS multiple pelvic surgeries including recent vulvectomy 2 weeks ago. She is presenting with concerns of inflammation and purulent drainage from her surgical
incision is done at [facility] 2 weeks ago. Claims to have some chills body aches and starting to feel sick. Symptoms started 5 days or so ago she was started on Bactrim a few days ago has been taking this as prescribed without
improvement. Symptoms worsened today which prompted her to come to the ER. Did have some nausea vomiting.
Past History
<MICA Carr Jr. Last Filed: 05/08/25 14:44>
Past History
ED Past Medical History: GERD, HTN, NIDDM and Other (Polycystic ovarian syndrome, Ovarian cyst, UTI, Kidney stones, IBS, endometriosis, hiatal hernia, esophagitis/gastritis)
ED Past Surgical History: Cholecystectomy (February 2015), Gynecological (Laparoscopy for endometriosis, left ovarian cyst February 2019.) and Tonsilectomy
Social History
Tobacco: Former smoker
Alcohol: Occasional
Drug: None
Personal: Single
Living: with family
Employment: Employed
Family History
Family History: Hypertension
Review of Systems
<MICA Carr Jr. Last Filed: 05/08/25 14:44>
Review of Systems
Allergies reviewed?: Yes
All Other Systems: ROS reviewed and negative except as documented in HPI and ROS
Phy Exam
<MICA Carr Jr. Last Filed: 05/08/25 14:44>
Physical Exam
Physical Exam:
GENERAL: Alert , in no apparent distress
EYE: pupils equal and reactive
NECK: Supple, no significant adenopathy.
ENT: o/p clr, mmm.
CARDIAC: Regular rate and rhythm .
LUNGS: Clear breath sounds bilaterally, no acute respiratory distress, no wheezes/rales/rhonchi
ABDOMEN: Pelvic exam reveals swelling to the right sided vulvar region with surgical incision with redness and purulent drainage to the central portion. Very tender to palpation. Abdomen is soft, without focal tenderness, no r/g, no cvat
NEUROLOGICAL: Alert and oriented, no focal neuro deficits
SKIN: Warm and dry, skin intact.
MUSCULOSKELETAL: No edema, well perfused.
PSYCH: Normal and appropriate interaction.
Course
<Roverto Luna Jr., PA-C - Last Filed: 05/08/25 14:44>
Orders/Labs/Results
Orders:
Orders
05/07/25 17:33
Electrocardiogram (*1) Urgent
Reason for Study: Other
Other Reason for Exam: Possible Sepsis
05/07/25 17:34
EKG- Treatment ONCE
05/07/25 17:50
Complete Blood Count/With Diff Urgent
Comprehensive Metabolic Panel Urgent
HCG, Serum Qualitative Screen Urgent
Comment: ADD ON
Lactic Acid Q4H
Comment: ON ICE, CANCEL 2ND ORDER IF FIRST LACTIC ACID LEVEL <2
Blood Culture Stat
SANTHOS[facility] Source: Blood/Venous
Specimen Description:
05/07/25 20:00
Vancomycin [Vancocin] 2,000 mg 0.9% Sodium Chloride 500 ml [Nss] 500 ml IV NOW
05/07/25 20:05
Add On- LAB Urgent
Tests Added?: hcg serum qual
0.9% Sodium Chloride 1000 ml [Nss] 1,000 ml IV BOLUS
05/07/25 20:11
Ondansetron Injectable [Zofran] 4 mg IV NOW STA
05/07/25 20:12
Ondansetron Injectable [Zofran] 4 mg .ROUTE .STK-MED ONE
05/07/25 20:18
Blood Culture Urgent
SANTH[place] Source: Blood/Venous
Specimen Description:
05/07/25 20:21
Wound Culture [Wound/Abscess/Other Culture] Urgent
SANTH[place]H Source: Suture Site
Specimen Description:
Date Specimen was Collected: 05/07/25
Time Specimen was Collected: 20:20
05/07/25 21:20
Lactic Acid Q4H
Comment: ON ICE, CANCEL 2ND ORDER IF FIRST LACTIC ACID LEVEL <2
05/07/25 21:22
HYDROmorphone [Dilaudid] 0.5 mg IV NOW STA
Ondansetron Injectable [Zofran] 4 mg IV NOW STA
05/07/25 21:27
HYDROmorphone [Dilaudid] 1 mg .ROUTE .STK-MED ONE
05/07/25 21:42
Famotidine [Pepcid] 20 mg IV NOW STA
05/07/25 23:50
COVID-19 Antigen Urgent
Source: Nasal Swab
05/08/25 00:38
0.9% Sodium Chloride 1000 ml [Nss] 1,000 ml IV BOLUS
05/08/25 01:05
Ondansetron Injectable [Zofran] 4 mg IV NOW STA
05/08/25 01:45
diazePAM [Valium Injection] 5 mg IV NOW STA
05/08/25 02:36
Diphenhydramine [Benadryl] 25 mg IV NOW STA
Abnormal Lab Results
05/07/25
17:50
WBC 14.1 H 10^3/uL
(4.8-10.8)
Hct 36.8 L %
(37.0-47.0)
Plt Count 418 H 10^3/uL
(130-400)
Abs Immat Gran (auto) 0.1 H 10^3/uL
(0-0.05)
Absolute Neuts (auto) 9.6 H 10^3/uL
(1.4-6.5)
Absolute Monos (auto) 1.1 H 10^3/uL
(0.1-0.6)
Immature Gran % 0.6 H %
(0-0.5)
Sodium 131 L mmol/L
(135-145)
Potassium 5.2 H mmol/L
(3.5-5.1)
BUN 18 H mg/dl
(7-17)
Creatinine 1.3 H mg/dL
(0.6-1.0)
Glucose 136 H mg/dl
(70-99)
Lactic Acid 2.2 H mmol/L
(0.7-2.0)
Calcium 11.7 H mg/dl
(8.4-10.2)
Total Protein 8.5 H g/dl
(6.3-8.2)
Albumin 5.1 H g/dl
(3.5-5.0)
05/07/25 17:50
05/07/25 17:50
Vital Signs
Initial and Last Documented VS:
Initial Vital Signs
Temp Pulse Resp BP Pulse Ox
99.3 F 114 18 180/109 98
05/07/25 17:30 05/07/25 17:30 05/07/25 17:30 05/07/25 17:30 05/07/25 17:30
Last Documented Vital Signs
Temp Pulse Resp BP Pulse Ox
99.4 F 102 26 131/73 100
05/08/25 05:10 05/08/25 03:34 05/08/25 03:34 05/08/25 01:20 05/08/25 03:34
<Ariadna Goetz PA-C - Last Filed: 05/08/25 07:43>
Orders/Labs/Results
Orders:
Orders
05/07/25 17:33
Electrocardiogram (*1) Urgent
Reason for Study: Other
Other Reason for Exam: Possible Sepsis
05/07/25 17:34
EKG- Treatment ONCE
05/07/25 17:50
Complete Blood Count/With Diff Urgent
Comprehensive Metabolic Panel Urgent
HCG, Serum Qualitative Screen Urgent
Comment: ADD ON
Lactic Acid Q4H
Comment: ON ICE, CANCEL 2ND ORDER IF FIRST LACTIC ACID LEVEL <2
Blood Culture Stat
S[place]TH[place]H Source: Blood/Venous
Specimen Description:
05/07/25 20:00
Vancomycin [Vancocin] 2,000 mg 0.9% Sodium Chloride 500 ml [Nss] 500 ml IV NOW
05/07/25 20:05
Add On- LAB Urgent
Tests Added?: hcg serum qual
0.9% Sodium Chloride 1000 ml [Nss] 1,000 ml IV BOLUS
05/07/25 20:11
Ondansetron Injectable [Zofran] 4 mg IV NOW STA
05/07/25 20:12
Ondansetron Injectable [Zofran] 4 mg .ROUTE .[facility]-MED ONE
05/07/25 20:18
Blood Culture Urgent
[place] Source: Blood/Venous
Specimen Description:
05/07/25 20:21
Wound Culture [Wound/Abscess/Other Culture] Urgent
S[place] Source: Suture Site
Specimen Description:
Date Specimen was Collected: 05/07/25
Time Specimen was Collected: 20:20
05/07/25 21:20
Lactic Acid Q4H
Comment: ON ICE, CANCEL 2ND ORDER IF FIRST LACTIC ACID LEVEL <2
05/07/25 21:22
HYDROmorphone [Dilaudid] 0.5 mg IV NOW STA
Ondansetron Injectable [Zofran] 4 mg IV NOW STA
05/07/25 21:27
HYDROmorphone [Dilaudid] 1 mg .ROUTE .STK-MED ONE
05/07/25 21:42
Famotidine [Pepcid] 20 mg IV NOW STA
05/07/25 23:50
COVID-19 Antigen Urgent
Source: Nasal Swab
05/08/25 00:38
0.9% Sodium Chloride 1000 ml [Nss] 1,000 ml IV BOLUS
05/08/25 01:05
Ondansetron Injectable [Zofran] 4 mg IV NOW STA
05/08/25 01:45
diazePAM [Valium Injection] 5 mg IV NOW STA
05/08/25 02:36
Diphenhydramine [Benadryl] 25 mg IV NOW STA
Abnormal Lab Results
05/07/25
17:50
WBC 14.1 H 10^3/uL
(4.8-10.8)
Hct 36.8 L %
(37.0-47.0)
Plt Count 418 H 10^3/uL
(130-400)
Abs Immat Gran (auto) 0.1 H 10^3/uL
(0-0.05)
Absolute Neuts (auto) 9.6 H 10^3/uL
(1.4-6.5)
Absolute Monos (auto) 1.1 H 10^3/uL
(0.1-0.6)
Immature Gran % 0.6 H %
(0-0.5)
Sodium 131 L mmol/L
(135-145)
Potassium 5.2 H mmol/L
(3.5-5.1)
BUN 18 H mg/dl
(7-17)
Creatinine 1.3 H mg/dL
(0.6-1.0)
Glucose 136 H mg/dl
(70-99)
Lactic Acid 2.2 H mmol/L
(0.7-2.0)
Calcium 11.7 H mg/dl
(8.4-10.2)
Total Protein 8.5 H g/dl
(6.3-8.2)
Albumin 5.1 H g/dl
(3.5-5.0)
05/07/25 17:50
05/07/25 17:50
Vital Signs
Initial and Last Documented VS:
Initial Vital Signs
Temp Pulse Resp BP Pulse Ox
99.3 F 114 18 180/109 98
05/07/25 17:30 05/07/25 17:30 05/07/25 17:30 05/07/25 17:30 05/07/25 17:30
Last Documented Vital Signs
Temp Pulse Resp BP Pulse Ox
99.4 F 102 26 131/73 100
05/08/25 05:10 05/08/25 03:34 05/08/25 03:34 05/08/25 01:20 05/08/25 03:34
<Vee Randle MD - Last Filed: 05/07/25 23:46>
Orders/Labs/Results
Orders:
Orders
05/07/25 17:33
Electrocardiogram (*1) Urgent
Reason for Study: Other
Other Reason for Exam: Possible Sepsis
05/07/25 17:34
EKG- Treatment ONCE
05/07/25 17:50
Complete Blood Count/With Diff Urgent
Comprehensive Metabolic Panel Urgent
HCG, Serum Qualitative Screen Urgent
Comment: ADD ON
Lactic Acid Q4H
Comment: ON ICE, CANCEL 2ND ORDER IF FIRST LACTIC ACID LEVEL <2
Blood Culture Stat
[place] Source: Blood/Venous
Specimen Description:
05/07/25 20:00
Vancomycin [Vancocin] 2,000 mg 0.9% Sodium Chloride 500 ml [Nss] 500 ml IV NOW
05/07/25 20:05
Add On- LAB Urgent
Tests Added?: hcg serum qual
0.9% Sodium Chloride 1000 ml [Nss] 1,000 ml IV BOLUS
05/07/25 20:11
Ondansetron Injectable [Zofran] 4 mg IV NOW STA
05/07/25 20:12
Ondansetron Injectable [Zofran] 4 mg .ROUTE .STK-MED ONE
05/07/25 20:18
Blood Culture Urgent
[place] Source: Blood/Venous
Specimen Description:
05/07/25 20:21
Wound Culture [Wound/Abscess/Other Culture] Urgent
S[place]H Source: Suture Site
Specimen Description:
Date Specimen was Collected: 05/07/25
Time Specimen was Collected: 20:20
05/07/25 21:20
Lactic Acid Q4H
Comment: ON ICE, CANCEL 2ND ORDER IF FIRST LACTIC ACID LEVEL <2
05/07/25 21:22
HYDROmorphone [Dilaudid] 0.5 mg IV NOW STA
Ondansetron Injectable [Zofran] 4 mg IV NOW STA
05/07/25 21:27
HYDROmorphone [Dilaudid] 1 mg .ROUTE .STK-MED ONE
05/07/25 21:42
Famotidine [Pepcid] 20 mg IV NOW STA
05/07/25 23:50
COVID-19 Antigen Urgent
Source: Nasal Swab
05/08/25 00:38
0.9% Sodium Chloride 1000 ml [Nss] 1,000 ml IV BOLUS
05/08/25 01:05
Ondansetron Injectable [Zofran] 4 mg IV NOW STA
05/08/25 01:45
diazePAM [Valium Injection] 5 mg IV NOW STA
05/08/25 02:36
Diphenhydramine [Benadryl] 25 mg IV NOW STA
Abnormal Lab Results
05/07/25
17:50
WBC 14.1 H 10^3/uL
(4.8-10.8)
Hct 36.8 L %
(37.0-47.0)
Plt Count 418 H 10^3/uL
(130-400)
Abs Immat Gran (auto) 0.1 H 10^3/uL
(0-0.05)
Absolute Neuts (auto) 9.6 H 10^3/uL
(1.4-6.5)
Absolute Monos (auto) 1.1 H 10^3/uL
(0.1-0.6)
Immature Gran % 0.6 H %
(0-0.5)
Sodium 131 L mmol/L
(135-145)
Potassium 5.2 H mmol/L
(3.5-5.1)
BUN 18 H mg/dl
(7-17)
Creatinine 1.3 H mg/dL
(0.6-1.0)
Glucose 136 H mg/dl
(70-99)
Lactic Acid 2.2 H mmol/L
(0.7-2.0)
Calcium 11.7 H mg/dl
(8.4-10.2)
Total Protein 8.5 H g/dl
(6.3-8.2)
Albumin 5.1 H g/dl
(3.5-5.0)
05/07/25 17:50
05/07/25 17:50
Vital Signs
Initial and Last Documented VS:
Initial Vital Signs
Temp Pulse Resp BP Pulse Ox
99.3 F 114 18 180/109 98
05/07/25 17:30 05/07/25 17:30 05/07/25 17:30 05/07/25 17:30 05/07/25 17:30
Last Documented Vital Signs
Temp Pulse Resp BP Pulse Ox
99.4 F 102 26 131/73 100
05/08/25 05:10 05/08/25 03:34 05/08/25 03:34 05/08/25 01:20 05/08/25 03:34
<Roverto Luna Jr., PA-C - Last Filed: 05/08/25 14:44>
MDM/Problems Addressed
MDM/Problems Addressed:
34-year-old female presenting to the emergency department today with concerns of inflammation and purulent drainage from recent surgical site of her right sided vulvar region. On exam patient does have purulent drainage on arrival here she had
low-grade temperature and was tachycardic. Patient started on fluids started on IV antibiotics as well as cultures were sent. otherwise patient will be transferred considering surgical procedure was performed at [facility]. Stable throughout ER
stay.
<Roverto Luna Jr., PA-C - Last Filed: 05/08/25 14:44>
*Pulse Oximetry
SaO2: 97
Oxygen Mode of Delivery: Room air
<Ariadna Goetz PA-C - Last Filed: 05/08/25 07:43>
*Pulse Oximetry
Patient hypoxic: no
*Critical Care Note
Total Time (30-74mins, 75-104mins- exclusive of procedures): Not Applicable
<MICA Noel Last Filed: 05/08/25 07:43>
Update Note
Update Note:
I received patient in signout
Patient transfer was set up pending bed
I was told by [facility] that patient would not have a bed likely until later in the morning pending hospital discharges
[facility] requires admission if transfer will be greater than 4 hours
I called back transfer center to attempt to do ED to ED transfer considering that we do not have [employer] [facility] services here
Patient has increasing pain and vomiting
Patient initially accepted for ED to ED transfer however considering asking symptoms patient was made higher priority and likely receive a bed sooner
ED Attending Note
<Roverto Luna Jr., PA-C - Last Filed: 05/08/25 14:44>
-
Portions of this chart may have been created with voice recognition software.� Occasional wrong word or��sound alike� substitutions may have occurred due to the inherent limitations of voice recognition software.
<Vee Randle MD - Last Filed: 05/07/25 23:46>
ED Attending Note
Patient seen and examined by attending physician: Yes
I performed the substantive portion of visit, reviewed & personally made and approve the management plan that is documented in note by myself or MISAEL.: Yes
ED Attending Note:
Patient appears nontoxic. Lungs are clear heart sounds regular
Discharge Plan
Departure
Patient Disposition: Acute Care Hospital
Date of Disposition: 05/08/25
Time of Disposition: 00:37
Admit to: Med/Surg
Admit to doctor: Fidel
Patient with high blood pressure during this ER visit?: No
Condition: Good
Covid-19: Not Applicable
Discharge Problem:
Surgical site infection
Prescriptions:
No Action
lisinopril 20 MG tablet
20 mg PO QPM
spironolactone 100 mg Tablet
200 mg PO DAILY
spironolactone 100 mg Tablet
100 mg PO QPM
labetalol 300 mg Tablet
150 mg PO TID
escitalopram oxalate [Lexapro] 10 mg Tablet
10 mg PO DAILY
cholecalciferol (vitamin D3) [Vitamin D3] 125 mcg (5,000 unit) Tablet
125 mcg PO DAILY
Slynd 4 mg (28) Tablet
4 mg PO HS
magnesium citrate,mag oxide 250 mg Capsule
250 mg PO DAILY
Mounjaro 5 mg/0.5 mL Pen Injector
5 mg SC WE
famotidine [Pepcid] 40 mg tablet
40 mg PO HS
Visbiome 112.5 billion cell Capsule
1 cap PO DAILY
betamethasone valerate 0.1 % Cream
1 applic topical BID Qty: 15 0RF
Rx Instructions:
apply to rash
cetirizine 10 mg Tablet
10 mg PO BID Qty: 60 0RF
pantoprazole 40 mg Tablet,Delayed Release (Dr/Ec)
40 mg PO BID Qty: 60 0RF
dexamethasone 4 mg tablet
8 mg PO DAILY Qty: 14 0RF
Referrals:
UNKNOWN - PT DOES,NOT KNOW [Family Provider]
Hospital Transfer
Other hospital: [facility]
I certify that the patient requires transfer: Yes
Discussed case with accepting physician: Fidel
Reason for transfer: higher level of care
Interventions
Interventions:
*Risk Screen - Suicide Last Done: 05/07/25 17:30
*General Assessment Last Done: 05/07/25 17:30
*Neglect/Abuse Screening Last Done: 05/07/25 17:30
*ED- Fall Risk Assessment Last Done: 05/07/25 17:30
*ED COVID-19 Vaccine History Last Done: 05/07/25 17:30
*ED Influenza Vaccine History Last Done: 05/07/25 17:30
*Nursing Disposition Last Done: 05/08/25 05:30
ED-Skin Assessment Last Done: 05/07/25 20:54
Discharge Date and Time
Discharge Date/Time: 05/08/25 05:30
Print Language: GREENLAND[place]
[2025-05-07 22:00] VITALS: BP 136/75
[2025-05-07] MEDS: PEPCID 20 MG IV (22:13)
[2025-05-07 23:00] VITALS: BP 118/71
[2025-05-08 00:09] LABS: COVID-19 Antigen Negative (Negative)
[2025-05-08] MEDS: NSS 1000 IV (01:09)
[2025-05-08] MEDS: ZOFRAN 4 MG IV (01:11)
[2025-05-08 01:20] VITALS: BP 131/73
[2025-05-08] MEDS: VALIUM INJECTION 5 MG IV (01:49)
[2025-05-08] MEDS: BENADRYL 25 MG IV (02:42)
== END 2025-05-08 05:30 | disposition short-term general hospital (02) ==
LOC: EMR 17:25
PROVIDERS: Physician Assistant; Student in an Organized Health Care Education/Training Program; EMERGENCY PHYSICIAN Emergency Medicine
DX: T81.41XA Infection following a procedure, superficial incisional surgical site, initial encounter (principal); E11.9 Type 2 diabetes mellitus without complications; I10 Essential (primary) hypertension; K21.9 Gastro-esophageal reflux disease without esophagitis; K58.9 Irritable bowel syndrome, unspecified; E28.2 Polycystic ovarian syndrome; K44.9 Diaphragmatic hernia without obstruction or gangrene; Z79.85 Long-term (current) use of injectable non-insulin antidiabetic drugs; Z87.891 Personal history of nicotine dependence; Z82.49 Family history of ischemic heart disease and other diseases of the circulatory system
CPT/HCPCS: 99284; 96374; 96375 ×5; 96376 ×2; 96361; 80053; 83605; 84703; 85025; 87040; 87070; 87205; 87811; 93005